=== PATIENT | female | born 1960 | race Two or more races ===

== ENCOUNTER 2021-09-18 10:30 | Inpatient (IN) | payer OTHER, MEDICAID ==
[~2021-09-18] VITALS: Ht 142.2 cm; Wt 54.4 kg
[2021-09-18] MEDS ORDERED: InsuLIN REG 1unit/0.01ml Soln (100units/ml) IV ONE (10:45)
[2021-09-18] MEDS ORDERED: ONDANSETRON HCL 4 MG/2 ML VIAL IV ONE (10:45)
[2021-09-18] MEDS ORDERED: MORPHINE SULFATE 4 MG/ML SYR/VIAL IV ONE (10:45)
[2021-09-18 10:59] LABS: Basophils # (auto) 0 10 ^3/uL (0-0.2); Basophils % (auto) 0.4 % (0.0-2.0); Eosinophils # (auto) 0.1 10 ^3/uL (0-0.8); Eosinophils % (auto) 0.8 % (0.0-7.0); Hematocrit 38.6 % (36.0-46.0); Hemoglobin 12.7 g/dL (12.2-16.2); Lymphocytes # (auto) 1.2 10 ^3/uL (0.4-5.4); Lymphocytes % (auto) 15.7 % (10.0-50.0); Mean Corpuscular Hgb Conc. 32.8 g/dL (32.0-36.0); Mean Corpuscular Volume 88.5 fL (80.0-100.0); Monocytes # (auto) 0.4 10 ^3/uL (0-1.3); Monocytes % (auto) 5.1 % (0.0-12.0); Neutrophils # (auto) 6.2 10 ^3/uL (1.6-8.6); Nucleated Red Blood Cells % 0.1 %; Red Blood Cells 4.37 10^6/uL (4.0-5.20); Red Cell Distribution Width 13.4 % (11.8-14.3)
[2021-09-18 11:12] LABS: INR 0.96 (0.9-1.15); Partial Thromboplastin Time 25.7 sec (23.6-33.0)
[2021-09-18 11:20] LABS: Albumin 3.9 g/dL (3.4-5.0); Calcium 9.7 mg/dL (8.5-10.1); Magnesium 2.1 mg/dL (1.6-2.6); Potassium 5.2 mmol/L (3.5-5.1)
[2021-09-18 11:29] LABS: Bilirubin, Total 1.2 mg/dL (0.2-1.0)
[2021-09-18 12:11] LABS: BUN/Creatinine Ratio 20.8
[2021-09-18 14:51] LABS: Urine Bacteria FEW /hpf (None Seen); Urine Blood Negative /uL (Negative); Urine Specific Gravity 1.025 (1.001-1.035); Urine WBC 2 /hpf (0 - 5)
[2021-09-18] MEDS ORDERED: HYDROcodone-ACET 5/325MG TAB PO PRN (15:00)
[2021-09-18] MEDS ORDERED: MORPHINE SULFATE INJ 2 MG/ml SYRG IV PRN (15:00)
[2021-09-18] MEDS ORDERED: NITROGLYCERIN 0.4 MG SL TAB SL PRN (15:00)
[2021-09-18] MEDS ORDERED: hydrALAZINE HCL 20 MG/ML VL IV PRN (15:00)
[2021-09-18] MEDS ORDERED: ONDANSETRON HCL 4 MG/2 ML VIAL IV PRN (15:00)
[2021-09-18] MEDS ORDERED: SODIUM CHLORIDE 0.9% 1,000 ML IV ONE ×2 (15:00)
[2021-09-18] MEDS ORDERED: DOCUSATE SOD 100 MG CAP PO PRN (15:00)
[2021-09-18] MEDS ORDERED: DEXTROSE (50%) 50ML SYRG IV PRN (15:00)
[2021-09-18] MEDS ORDERED: ACETAMINOPHEN 325 MG TAB PO PRN (15:00)
[2021-09-18 16:00] VITALS: BP 132/52
[2021-09-18] MEDS ORDERED: ACCU-CHEK COMFORT CURVE STRIP VI SCH (16:00)
[2021-09-18] MEDS ORDERED: InsuLIN REG 1unit/0.01ml Soln (100units/ml) SC SCH (16:00)
[2021-09-18 16:07] LABS: BUN/Creatinine Ratio 23.8; Calcium 8.9 mg/dL (8.5-10.1); Potassium 5.5 mmol/L (3.5-5.1)
[2021-09-18] MEDS ORDERED: SODIUM ZIRCONIUM CYCL 10 GM PAK PO ONE (16:30)
[2021-09-19] MEDS ORDERED: INSULIN LANTUS (GLARGINE) 1 /0.01ml (100units/ml) SC SCH (10:00)
== END 2021-09-18 17:41 | disposition left against medical advice (07) | DRG 313 ==
LOC: ER 10:30 → EDBD 10:30 → TELE 14:56
PROVIDERS: ADMIT Internal Medicine; ATTEND Internal Medicine
DX: R07.89 Other chest pain (principal); E11.10 Type 2 diabetes mellitus with ketoacidosis without coma; Z20.822 Contact with and (suspected) exposure to COVID-19; E78.5 Hyperlipidemia, unspecified; E87.5 Hyperkalemia; F41.9 Anxiety disorder, unspecified; Z96.41 Presence of insulin pump (external) (internal); Z53.29 Procedure and treatment not carried out because of patient's decision for other reasons; I10 Essential (primary) hypertension; I25.2 Old myocardial infarction; Z79.4 Long term (current) use of insulin; Z82.0 Family history of epilepsy and other diseases of the nervous system; Z83.3 Family history of diabetes mellitus; Z86.73 Personal history of transient ischemic attack (TIA), and cerebral infarction without residual deficits; Z87.442 Personal history of urinary calculi; Z95.1 Presence of aortocoronary bypass graft; Z90.49 Acquired absence of other specified parts of digestive tract; Z88.8 Allergy status to other drugs, medicaments and biological substances
CPT/HCPCS: 36415; 71045; 80048; 80053; 81001; 82962; 83735; 83880; 84484; 85025; 85610; 85730; 93005; 93306; 96374; 96375; 99291; G0378; J1815; J2405

== ENCOUNTER 2021-09-25 11:20 | Outpatient (CLI) | payer OTHER, MEDICAID ==
[~2021-09-25] VITALS: Ht 142.2 cm; Wt 54.4 kg
[2021-09-25] MEDS ORDERED: OMEP20TA PO (15:36)
[2021-09-25] MEDS ORDERED: HYDR-4798 PO (15:36)
[2021-09-25] MEDS ORDERED: ASPI-543 PO (15:36)
[2021-09-25] MEDS ORDERED: ROSU10TA16 PO (15:36)
[2021-09-25] MEDS ORDERED: ISOS1TAB28 PO (15:36)
[2021-09-25] MEDS ORDERED: INSU100I60 SC (15:36)
[2021-09-25] MEDS ORDERED: TELM1TAB35 PO (15:36)
[2021-09-25] MEDS ORDERED: METF-929 PO (15:36)
[2021-09-25] MEDS ORDERED: METH500T22 PO (15:36)
[2021-09-25] MEDS ORDERED: GABA100C9 PO (15:36)
[2021-09-25] MEDS ORDERED: METO-289 PO (15:41)
[2021-09-25] MEDS ORDERED: PAR20T PO (15:41)
== END 2021-09-25 11:22 | disposition home or self-care (01) ==
LOC: LAB 11:20 → EDSTATUS 09-29 15:52
PROVIDERS: ATTEND Internal Medicine Cardiovascular Disease
DX: R94.39 Abnormal result of other cardiovascular function study (principal); Z53.8 Procedure and treatment not carried out for other reasons; Z20.822 Contact with and (suspected) exposure to COVID-19

== ENCOUNTER 2021-11-06 06:22 | Day surgery (SDC) | payer OTHER, MEDICAID ==
[2021-11-06] VITALS (7 sets, daily range): BP systolic 118–134; BP diastolic 52–60
[~2021-11-06] VITALS: Ht 142.2 cm; Wt 54.4 kg
[~2021-11-06 06:22] MED LIST: ASPI-543 PO; GABA100C9 PO; HYDR-4798 PO; INSU100I60 SC; ISOS1TAB28 PO; METF-929 PO; METH500T22 PO; METO-289 PO; OMEP20TA PO; PAR20T PO; ROSU10TA16 PO; TELM1TAB35 PO
[2021-11-06] MEDS ORDERED: IODIXANOL 320MG/ML 100ML BTL IV ONE ×2 (07:37→08:39)
[2021-11-06] MEDS ORDERED: LIDOCAINE 2%HCL (LOCAL ANESTH.) INJ 20ML MDV ONE (07:38)
[2021-11-06] MEDS ORDERED: MIDAZOLAM HCL 2MG/2ML 2ml VIAL (1mg/ml) ONE (07:59)
[2021-11-06] MEDS ORDERED: fentaNYL CITRATE 100 MCG/2 ML VL ONE (07:59)
== END 2021-11-06 11:22 | disposition home or self-care (01) ==
LOC: CATH 06:22
PROVIDERS: ATTEND Internal Medicine Cardiovascular Disease
DX: R07.9 Chest pain, unspecified (principal); I25.10 Atherosclerotic heart disease of native coronary artery without angina pectoris; Z95.1 Presence of aortocoronary bypass graft; Z20.822 Contact with and (suspected) exposure to COVID-19
CPT/HCPCS: 93459; C1760; C1894; J1644; J2250; J3010; Q9967; U0003; 99152; 99153

== ENCOUNTER 2022-01-02 20:23 | Emergency (ER) | payer OTHER, MEDICAID ==
[~2022-01-02] VITALS: Ht 144.8 cm; Wt 54.6 kg
[2022-01-02 22:05] LABS: Basophils # (auto) 0 10 ^3/uL (0-0.2); Basophils % (auto) 0.2 % (0.0-2.0); Eosinophils # (auto) 0.1 10 ^3/uL (0-0.8); Hematocrit 35.8 % (36.0-46.0); Hemoglobin 11.9 g/dL (12.2-16.2); Lymphocytes # (auto) 1.5 10 ^3/uL (0.4-5.4); Lymphocytes % (auto) 15.8 % (10.0-50.0); Mean Corpuscular Hemoglobin 29.4 pg (28.0-32.0); Mean Corpuscular Hgb Conc. 33.3 g/dL (32.0-36.0); Mean Corpuscular Volume 88.2 fL (80.0-100.0); Monocytes # (auto) 0.5 10 ^3/uL (0-1.3); Monocytes % (auto) 5.6 % (0.0-12.0); Neutrophils # (auto) 7.3 10 ^3/uL (1.6-8.6); Neutrophils % (auto) 77.4 % (37.0-80.0); Red Blood Cells 4.05 10^6/uL (4.0-5.20); Red Cell Distribution Width 13.4 % (11.8-14.3); White Blood Cell 9.5 10^3/uL (4.4-10.8)
[2022-01-02 22:25] LABS: Albumin 3.5 g/dL (3.4-5.0); Calcium 9.4 mg/dL (8.5-10.1)
[2022-01-02 22:48] LABS: Potassium 4.6 mmol/L (3.5-5.1)
[2022-01-02 22:53] LABS: Bilirubin, Total 0.3 mg/dL (0.2-1.0); Total Protein 6.6 g/dL (6.4-8.2)
[2022-01-02 22:54] LABS: BUN/Creatinine Ratio 26.9
[2022-01-02 23:15] LABS: Urine Bacteria NONE SEEN /hpf (None Seen); Urine Blood 3+ /uL (Negative); Urine Mucus FEW (None Seen); Urine Specific Gravity 1.022 (1.001-1.035); Urine WBC 55 /hpf (0 - 5)
[2022-01-02] MEDS: ACETAMINOPHEN 500 MG TAB PO ONE ×2 (23:26→23:27)
[2022-01-02] MEDS ORDERED: MORPHINE SULFATE INJ 2 MG/ml SYRG IV ONE (23:45)
[2022-01-02] MEDS ORDERED: SODIUM CHLORIDE 0.9% 1,000 ML IV ONE (23:45)
[2022-01-02] MEDS ORDERED: ONDANSETRON HCL 4 MG/2 ML VIAL IV ONE (23:45)
[2022-01-03 05:00] VITALS: BP 155/57
[2022-01-03] MEDS ORDERED: ONDA-144 PO (05:11)
[2022-01-03] MEDS ORDERED: TAM04C PO (05:11)
[2022-01-03] MEDS ORDERED: CIPR-173 PO (05:14)
[2022-01-03] MEDS ORDERED: CIPROFLOXACIN HCL 500 MG TAB PO ONE (05:15)
== END 2022-01-03 05:28 | disposition home or self-care (01) ==
LOC: ER 20:24
DX: N20.0 Calculus of kidney (principal); I10 Essential (primary) hypertension; E11.9 Type 2 diabetes mellitus without complications; E78.5 Hyperlipidemia, unspecified; I25.2 Old myocardial infarction; Z86.73 Personal history of transient ischemic attack (TIA), and cerebral infarction without residual deficits; Z95.1 Presence of aortocoronary bypass graft; Z90.49 Acquired absence of other specified parts of digestive tract; Z79.4 Long term (current) use of insulin; Z79.899 Other long term (current) drug therapy; Z88.8 Allergy status to other drugs, medicaments and biological substances
CPT/HCPCS: 36415; 74176; 80053; 81001; 83690; 84484; 85025; 96361; 96374; 96375; 99284; J2270; J2405; J7030

== ENCOUNTER 2022-07-01 17:34 | Emergency (ER) | payer OTHER, MEDICAID ==
[~2022-07-01] VITALS: Ht 142.2 cm; Wt 56.4 kg
[~2022-07-01 17:34] MED LIST changes: +CIPR-173 PO; +ONDA-144 PO; +TAM04C PO
[2022-07-01 18:44] VITALS: BP 133/52
== END 2022-07-01 19:02 | disposition home or self-care (01) ==
LOC: ER 17:34
DX: R51.9 Headache, unspecified (principal); F41.9 Anxiety disorder, unspecified; E11.9 Type 2 diabetes mellitus without complications; E78.5 Hyperlipidemia, unspecified; I10 Essential (primary) hypertension; I25.2 Old myocardial infarction; Z87.442 Personal history of urinary calculi; Z86.73 Personal history of transient ischemic attack (TIA), and cerebral infarction without residual deficits; Z95.1 Presence of aortocoronary bypass graft
CPT/HCPCS: 70450

== ENCOUNTER → 2023-03-30 | Outpatient (CLI) | payer MEDICAID ==
[~2023-03-30] MED LIST changes: +GABA-1308 PO; -GABA100C9 PO; +METH-1181 PO; -METH500T22 PO; -TAM04C PO; +TAMS-35 PO
[2023-03-30 08:10] LABS: Basophils # (auto) 0 10 ^3/uL (0-0.2); Basophils % (auto) 0.4 % (0.0-2.0); Eosinophils # (auto) 0.1 10 ^3/uL (0-0.8); Eosinophils % (auto) 2.1 % (0.0-7.0); Hematocrit 37.1 % (36.0-46.0); Hemoglobin 12.6 g/dL (12.2-16.2); Lymphocytes # (auto) 2.7 10 ^3/uL (0.4-5.4); Lymphocytes % (auto) 39.4 % (10.0-50.0); Mean Corpuscular Volume 88.1 fL (80.0-100.0); Monocytes # (auto) 0.5 10 ^3/uL (0-1.3); Monocytes % (auto) 7.8 % (0.0-12.0); Neutrophils # (auto) 3.4 10 ^3/uL (1.6-8.6); Neutrophils % (auto) 50.3 % (37.0-80.0); Red Blood Cells 4.22 10^6/uL (4.0-5.20); Red Cell Distribution Width 14.2 % (11.8-14.3); White Blood Cell 6.8 10^3/uL (4.4-10.8)
[2023-03-30 08:34] LABS: Urine Bacteria FEW /hpf (None Seen); Urine Blood Negative /uL (Negative); Urine Clarity Clear (Clear); Urine Color Straw (Yellow); Urine Protein, UAD Negative (Negative); Urine Urobilinogen Normal (Negative); Urine WBC 2 /hpf (0 - 5); Urine pH 5.5 (5.0-8.0)
[2023-03-30 08:41] LABS: Alkaline Phosphatase 116 U/L (46-116); Triglycerides 69 mg/dL (< 150)
[2023-03-30 08:42] LABS: Alanine Aminotransferase 32 U/L (7-40); Albumin 4.4 g/dL (3.2-4.8); Anion Gap 5 (5-15); Aspartate Aminotransferase 23 U/L (13-40); BUN/Creatinine Ratio 14.7 (10.0-20.0); Bilirubin, Total 0.6 mg/dL (0.2-1.0); Blood Urea Nitrogen 10 mg/dL (9-23); Calcium 9.8 mg/dL (8.5-10.1); Carbon Dioxide 29 mmol/L (20-30); Chloride 109 mmol/L (98-107); Cholesterol 121 mg/dL (< 200); Glucose 164 mg/dL (74-106); HDL Cholesterol 57 mg/dL (40-59); LDL Cholesterol 49 mg/dL (< 100); Potassium 4.7 mmol/L (3.5-5.1); Sodium 143 mmol/L (136-145); Total Protein 6.8 g/dL (5.7-8.2)
[2023-03-30 08:58] LABS: Folate (Folic Acid) > 24.00 ng/mL (>5.38)
[2023-03-30 09:33] LABS: Magnesium 1.8 mg/dL (1.6-2.6); Uric Acid 3.8 mg/dL (3.1-7.8)
== END | disposition home or self-care (01) ==
LOC: LAB 07:46
PROVIDERS: ATTEND Internal Medicine
DX: E61.2 Magnesium deficiency (principal); E85.9 Amyloidosis, unspecified; R82.90 Unspecified abnormal findings in urine; D51.9 Vitamin B12 deficiency anemia, unspecified; R79.89 Other specified abnormal findings of blood chemistry; E78.9 Disorder of lipoprotein metabolism, unspecified; R68.89 Other general symptoms and signs; R73.09 Other abnormal glucose
CPT/HCPCS: 36415; 80053; 80061; 81001; 82306; 82607; 82746; 83036; 83735; 84443; 84550; 85025; 87086

== ENCOUNTER → 2023-06-01 | Outpatient (CLI) | payer MEDICAID ==
[2023-06-01 11:33] LABS: Basophils # (auto) 0 10 ^3/uL (0-0.2); Basophils % (auto) 0.4 % (0.0-2.0); Eosinophils # (auto) 0.1 10 ^3/uL (0-0.8); Eosinophils % (auto) 1.9 % (0.0-7.0); Hemoglobin 12.4 g/dL (12.2-16.2); Lymphocytes # (auto) 2.4 10 ^3/uL (0.4-5.4); Lymphocytes % (auto) 35.2 % (10.0-50.0); Mean Corpuscular Hemoglobin 29.5 pg (28.0-32.0); Mean Corpuscular Hgb Conc. 33.6 g/dL (32.0-36.0); Mean Corpuscular Volume 87.8 fL (80.0-100.0); Monocytes # (auto) 0.5 10 ^3/uL (0-1.3); Monocytes % (auto) 7.4 % (0.0-12.0); Neutrophils # (auto) 3.8 10 ^3/uL (1.6-8.6); Neutrophils % (auto) 55.1 % (37.0-80.0); Red Blood Cells 4.21 10^6/uL (4.0-5.20); Red Cell Distribution Width 13.8 % (11.8-14.3); White Blood Cell 6.9 10^3/uL (4.4-10.8)
[2023-06-01 12:14] LABS: Alanine Aminotransferase 33 U/L (7-40); Albumin 4.6 g/dL (3.2-4.8); Alkaline Phosphatase 128 U/L (46-116); Anion Gap 8 (5-15); Aspartate Aminotransferase 32 U/L (13-40); BUN/Creatinine Ratio 21.9 (10.0-20.0); Bilirubin, Total 0.4 mg/dL (0.2-1.0); Blood Urea Nitrogen 14 mg/dL (9-23); CRP High Sensitivity 0.08 mg/dL (<1.0); Calcium 10.1 mg/dL (8.5-10.1); Carbon Dioxide 27 mmol/L (20-30); Chloride 106 mmol/L (98-107); Glucose 174 mg/dL (74-106); Potassium 4.5 mmol/L (3.5-5.1); Sodium 141 mmol/L (136-145); Total Protein 7.4 g/dL (5.7-8.2)
[2023-06-01 12:21] LABS: Erythrocyte Sedimentation Rate 13 mm/hr (0-20)
[2023-06-02 07:06] LABS: Rheumatoid Arthritis Factor <10.0 IU/mL (<14.0)
[2023-06-02 08:39] LABS: Hepatitis B Surface Antibody Positive (Negative)
[2023-06-02 08:51] LABS: Hepatitis B Surface Antigen Negative (Negative)
[2023-06-02 09:13] LABS: Hepatitis B Core IgM Negative; Hepatitis C Antibody Negative (Negative)
[2023-06-02 14:06] LABS: Hepatitis B Core Total Antibod Negative (Negative)
[2023-06-03 18:06] LABS: CCP IgG/IgA Antibody 7 units (0-19)
[2023-06-04 04:06] LABS: QuantiFERON-TB Gold Plus Negative (Negative)
== END | disposition home or self-care (01) ==
LOC: LAB 10:55
PROVIDERS: ATTEND Internal Medicine Rheumatology
DX: M06.9 Rheumatoid arthritis, unspecified (principal)
CPT/HCPCS: 36415; 80053; 85025; 85652; 86141; 86200; 86431; 86705; 86706; 86803; 86812; 87340

== ENCOUNTER → 2023-08-29 | Outpatient (CLI) | payer MEDICAID ==
[2023-08-29 07:36] LABS: Basophils # (auto) 0.1 10 ^3/uL (0-0.2); Basophils % (auto) 1.1 % (0.0-2.0); Eosinophils # (auto) 0.2 10 ^3/uL (0-0.8); Eosinophils % (auto) 2.6 % (0.0-7.0); Hematocrit 37.2 % (36.0-46.0); Hemoglobin 12.3 g/dL (12.2-16.2); Lymphocytes # (auto) 2.6 10 ^3/uL (0.4-5.4); Lymphocytes % (auto) 35.8 % (10.0-50.0); Mean Corpuscular Hemoglobin 29.2 pg (28.0-32.0); Mean Corpuscular Volume 88.5 fL (80.0-100.0); Monocytes # (auto) 0.5 10 ^3/uL (0-1.3); Monocytes % (auto) 7.3 % (0.0-12.0); Neutrophils # (auto) 3.9 10 ^3/uL (1.6-8.6); Neutrophils % (auto) 53.2 % (37.0-80.0); Nucleated Red Blood Cells % 0.1 %; Red Cell Distribution Width 14.1 % (11.8-14.3); White Blood Cell 7.4 10^3/uL (4.4-10.8)
[2023-08-29 07:54] LABS: Urine Bacteria FEW /hpf (None Seen); Urine Blood Negative /uL (Negative); Urine Clarity Clear (Clear); Urine Color Light-Yellow (Yellow); Urine Protein, UAD Negative (Negative); Urine Specific Gravity 1.012 (1.001-1.035); Urine Urobilinogen Normal (Negative); Urine WBC 3 /hpf (0 - 5); Urine pH 5.5 (5.0-9.0)
[2023-08-29 08:00] LABS: Alanine Aminotransferase 28 U/L (7-40); Alkaline Phosphatase 122 U/L (46-116); Calcium 10.3 mg/dL (8.5-10.1); Chloride 108 mmol/L (98-107); Triglycerides 65 mg/dL (< 150)
[2023-08-29 08:01] LABS: Anion Gap 4 (5-15); BUN/Creatinine Ratio 15.6 (10.0-20.0); Blood Urea Nitrogen 10 mg/dL (9-23); Carbon Dioxide 31 mmol/L (20-30); Glucose 81 mg/dL (74-106); LDL Cholesterol 38 mg/dL (< 100); Magnesium 1.9 mg/dL (1.6-2.6); Potassium 4.5 mmol/L (3.5-5.1); Sodium 143 mmol/L (136-145); Total Protein 6.9 g/dL (5.7-8.2)
[2023-08-29 08:02] LABS: Albumin 4.5 g/dL (3.2-4.8); Aspartate Aminotransferase 14 U/L (13-40); Bilirubin, Direct 0.2 mg/dL (<0.3); Bilirubin, Total 0.3 mg/dL (0.2-1.0); Cholesterol 108 mg/dL (< 200); HDL Cholesterol 55 mg/dL (40-59)
[2023-08-29 08:22] LABS: Protein, Urine < 6.0 mg/dL (0.0-11.9)
[2023-08-29 08:23] LABS: Urine Protein/Creatinine Ratio 0.13
[2023-08-29 08:27] LABS: Micro Albumin < 3.0 mg/L (<30.0)
[2023-08-29 08:44] LABS: Uric Acid 4.2 mg/dL (3.1-7.8)
[2023-08-29 11:29] LABS: Folate (Folic Acid) 26.77 ng/mL (>5.38)
[2023-08-30 08:06] LABS: Thyroid Peroxidase (TPO) Ab 12 IU/mL (0-34)
[2023-08-30 12:07] LABS: Complement C3 128 mg/dL (82-167); Rheumatoid Arthritis Factor <10.0 IU/mL (<14.0)
[2023-08-30 14:06] LABS: Anti-Nuclear Antibody Direct Positive (Negative); Anti-dsDNA Antibody 126 IU/mL (0-9); Antiscleroderma-70 Antibody <0.2 AI (0.0-0.9); RNP Antibody 0.2 AI (0.0-0.9); Sjogren's Anti-SS-A Antibody <0.2 AI (0.0-0.9); Sjogren's Anti-SS-B Antibody <0.2 AI (0.0-0.9); Smith Antibody <0.2 AI (0.0-0.9)
[2023-08-31 11:09] LABS: Antiparietal Cell Antibody 29.9 Units (0.0-20.0)
[2023-08-31 12:07] LABS: Actin (Smooth Muscle) Antibody 8 Units (0-19); Anti-Striated Muscle Antibody Negative (Neg:<1:100); Mitochondrial (M2) Antibody <20.0 Units (0.0-20.0)
== END | disposition home or self-care (01) ==
LOC: LAB 06:29
PROVIDERS: ATTEND Internal Medicine
DX: I10 Essential (primary) hypertension (principal); E78.5 Hyperlipidemia, unspecified; E03.9 Hypothyroidism, unspecified; R68.89 Other general symptoms and signs; D64.9 Anemia, unspecified; E78.9 Disorder of lipoprotein metabolism, unspecified; E61.2 Magnesium deficiency; E79.0 Hyperuricemia without signs of inflammatory arthritis and tophaceous disease; E85.9 Amyloidosis, unspecified; R82.90 Unspecified abnormal findings in urine; D51.9 Vitamin B12 deficiency anemia, unspecified; E10.65 Type 1 diabetes mellitus with hyperglycemia; Z79.899 Other long term (current) drug therapy; E11.9 Type 2 diabetes mellitus without complications
CPT/HCPCS: 36415; 80053; 80061; 81001; 82043; 82248; 82306; 82570; 82607; 82746; 83036; 83735; 84156; 84443; 84550; 85025; 86160; 86225; 86235; 86376; 86431; 87086

== ENCOUNTER 2024-10-01 05:29 | Inpatient (IN) | payer OTHER, MEDICAID ==
[~2024-10-01] VITALS: Ht 142.2 cm; Wt 60.0 kg
--- NOTE | 2024-10-01 06:52 | ED.PDOC ---
GI ASSESSMENT HPI Comments 63 y/o F, with PMHx of CVA, DC, TIA, DM, HTN, HLD, and kidney stones presents to the ED for CC of abdominal pain. Patient states, she has been experiencing LLQ abdominal pain with associated nausea and vomiting onset, 0200 this morning (10/01/24). Patient reports, pain to worsen with movement. Patient comments on, new symptoms of hematuria. Patient denies fever, chills, urinary frequency, hematochezia, or diarrhea. No other symptoms or modifying factors present at this time. Chief Complaint: Abdominal Pain Time Seen by MD: 06:40 Primary Care Provider: LYNN Reviewed Notes: Nurses Notes, Medications, Allergies Allergies: Coded Allergies: Lisinopril (Verified Allergy, Unknown, 11/04/21) Pregabalin (Verified Allergy, Unknown, 07/01/22) Tramadol (Verified Allergy, Unknown, 11/04/21) Home Meds Active Scripts Ciprofloxacin Hcl (Cipro) 500 Mg Tab, 500 MG PO BID for 7 Days, #14 Prov:SHYANN MCNEAL DO 01/03/22 Ondansetron (Zofran) 4 Mg Tab, 1 TAB PO Q6HR PRN for 7 Days, #28 TAB Prov:SHYANN MCNEAL DO 01/03/22 Tamsulosin Hcl (Flomax) 0.4 Mg Cap, 0.4 MG PO BID for 5 Days, #10 CAP Prov:SHYANN MCNEAL DO 01/03/22 Reported Medications Telmisartan (Telmisartan) 40 Mg Tab, 40 MG PO DAILY for HTN, TAB 11/04/21 Paroxetine (PAXIL TABLET) 20 Mg Tb, 0.5 TAB PO DAILY for DEPRESSION, #30 TAB 5 Refills 11/04/21 Insulin Aspart (Novolog Relion) 100 Unit/Ml Inj, 100 UNIT SC DAILY for diabetes, INJ 11/04/21 Metoprolol Succinate (Metoprolol Succinate Er) 50 Mg Tab, 50 MG PO DAILY for 30 Days, MG 09/25/21 Hydrocodone-Acetaminophen (Hydrocodone Bitartrate/AC 10-325 mg) 1 Tab Tab, 1 TAB PO BIDP PRN for PAIN, TAB 09/25/21 Omeprazole (Gnp Omeprazole) 20 Mg Tab, 1 TAB PO DAILY, #90 TAB 1 Refill 09/25/21 Rosuvastatin Calcium (Crestor) 10 Mg Tab, 1 TAB PO 4X WEEK for HYPERLIPIDEMIA, #30 TAB 5 Refills 09/25/21 Metformin HCl (Metformin Hydrochloride) 1,000 Mg Tab, 1000 MG PO BID for DIABETES, TAB 09/25/21 Isosorbide Mononitrate (Isosorbide Mononitrate Er) 30 Mg Tab, 30 MG PO DAILY for CHEST PAIN, MG 09/25/21 Aspirin (Aspir-Low) 81 Mg Tab, 81 MG PO DAILY for CHEST PAIN, MG 09/25/21 Methocarbamol (Methocarbamol) 500 Mg Tab, 500 MG PO TID for MUSCLE SPASM, TAB 09/25/21 Gabapentin (Gabapentin) 100 Mg Cap, 100 MG PO TID for NEUROPATHY 09/25/21 Information Source: Patient Mode of Arrival: Ambulatory Timing: Hours Duration: Since onset Prehospital treatment: None Quality: None Vomitus: Watery Stool: Normal Severity: Moderate Recent: None Recent Hx of: None Pain Location: LLQ Modifying Factors: Nothing Associated sign and symptoms: Nausea, Vomiting, Abdominal Pain Past Medical History PAST MEDICAL HISTORY: Anxiety, CVA, DM, High Lipids, HTN, Kidney Stones, DC, TIA Surgical History: CABG, Cholecystectomy [employer] History: No Pertinent [employer] History Family History Family History: Reviewed,noncontributory to illness, Family hx of heart sylvia, Family hx of Kidney sylvia Family History (Other): Alzheimer's disease Social History Smoker: Non-Smoker Alcohol: Denies ETOH Use Drugs: Denies Drug Use Lives In: Home Constitutional: denies: chills, diaphoresis, fatigue, fever, malaise, sweats, weakness, others EENTM: denies: blurred vision, double vision, ear bleeding, ear discharge, ear drainage, ear pain, ear ringing, eye pain, eye redness, hearing loss, mouth pain, mouth swelling, nasal discharge, nose bleeding, nose congestion, nose pain, photophobia, tearing, throat pain, throat swelling, voice changes, others Respiratory: denies: cough, hemoptysis, orthopnea, SOB at rest, shortness of breath, SOB with excertion, stridor, wheezing, others Cardiovascular: denies: chest pain, dizzy spells, diaphoresis, Dyspnea on exertion, edema, irregular heart beat, left arm pain, lightheadedness, palpitations, PND, syncope, others Gastrointestinal: reports: abdominal pain, nausea, vomiting; denies: abdomen distended, blood streaked bowels, constipated, diarrhea, dysphagia, difficulty swallowing, hematemesis, melena, poor appetite, poor fluid intake, rectal bleeding, rectal pain, others Genitourinary: denies: abnormal vagina bleeding, burning, dyspareunia, dysuria, flank pain, frequency, hematuria, incontinence, pain, , vagina disc harge, urgency, others Neurological: denies: dizziness, fainting, headache, left sided numbness, left sided weakness, numbness, paresthesia, pre-existing deficit, right sided numbness, right sided weakness, seizure, speech problems, tingling, tremors, weakness, others Musculoskeletal: denies: back pain, gout, joint pain, joint swelling, muscle pain, muscle stiffness, neck pain, others Integumetry: denies: bruises, change in color, change in hair/nails, dryness, laceration, lesions, lumps, rash, wounds, others Allergic/Immunocompromised: denies: Difficulty Healing, Frequent Infections, Hives, Itching, others Hematologic/Lymphatic: denies: anemia, blood clots, easy bleeding, easy bruising, swollen glands, others Endocrine: denies: excessive hunger, excessive sweating, excessive thirst, excessive urination, flushing, intolerance to cold, intolerance to heat, unexplained weight gain, unexplained weight loss, others Psychiatric: denies: anxiety, bipolar disorder, depression, hopeless, panic disorder, schizophrenia, sleepless, suicidal, others All Other Systems: Reviewed and Negative Physical Exam General Appearance: Moderate Distress HEENT: Normal ENT Inspection, Pharynx Normal, TMs Normal Neck: Full Range of Motion, Non-Tender, Normal, Normal Inspection Respiratory: Chest Non-Tender, Lungs Clear, No Accessory Muscle Use, No Respiratory Distress, Normal Breath Sounds Cardiovascular: No Edema, No JVD, No Murmur, No Gallop, Normal Peripheral Pulses, Regular Rate/Rhythm Breast Exam: Deferred Gastrointestinal: No Organomegaly, Non Tender, No Pulsatile Mass, Normal Bowel Sounds, Soft Genitalia: Deferred Pelvic: Deferred Rectal: Deferred Extremities: No calf tenderness, Normal capillary refill, Normal inspection, Normal range of motion, Non-tender, No pedal edema Musculoskeletal : Apperance: Normal Neurologic: Alert, automotive service writer II-XII nml as Tested, No Motor Deficits, Normal Affect, Normal Mood, No Sensory Deficits Cerebellar Function: Normal Reflexes: Normal Skin: Dry, Normal Color, Warm Peripheral Pulses: 3+ Radial (R), 3+ Radial (L) Lymphatic: No Adenopathy Was a procedure done? Was a procedure done?: No GI differential Dx Differential Diagnosis: Constipation, Diverticular disease, Esophagitis, Gastritis/PUD, Gastroenteritis, Inflammatory BD, Urolithiasis X-Ray, Labs, Meds, VS Vital Signs Date Time Temp Pulse Resp B/P (MAP) Pulse Ox O2 Delivery O2 Flow Rate FiO2 10/01/24 09:31 141/63 10/01/24 07:52 98.2 84 16 141/63 (89) 97 98.2 10/01/24 06:21 98.2 76 20 133/64 (87) 98 98.2 Lab Test 10/01/24 09:07 10/01/24 06:46 10/01/24 06:40 Range/Units Lactic Acid Level 1.3 0.4-2.0 mmol/L White Blood Count 14.7 H 4.4-10.8 10^3/uL Red Blood Count 4.40 4.0-5.20 10^6/uL Hemoglobin 13.2 12.2-16.2 g/dL Hematocrit 39.2 36.0-46.0 % Mean Corpuscular Volume 89.1 80.0-100.0 fL Mean Corpuscular Hemoglobin 30.1 28.0-32.0 pg Mean Corpuscular Hemoglobin Concent 33.8 32.0-36.0 g/dL Red Cell Distribution Width 13.7 11.8-14.3 % Platelet Count 332 140-450 10^3/uL Mean Platelet Volume 8.7 6.9-10.8 fL Neutrophils (%) (Auto) 83.1 H 37.0-80.0 % Lymphocytes (%) (Auto) 10.8 10.0-50.0 % Monocytes (%) (Auto) 5.5 0.0-12.0 % Eosinophils (%) (Auto) 0.3 0.0-7.0 % Basophils (%) (Auto) 0.3 0.0-2.0 % Neutrophils # (Auto) 12.2 H 1.6-8.6 10 ^3/uL Lymphocytes # (Auto) 1.6 0.4-5.4 10 ^3/uL Monocytes # (Auto) 0.8 0-1.3 10 ^3/uL Eosinophils # (Auto) 0 0-0.8 10 ^3/uL Basophils # (Auto) 0 0-0.2 10 ^3/uL Nucleated Red Blood Cells 0.0 % Sodium Level 139 136-145 mmol/L Potassium Level 5.1 3.5-5.1 mmol/L Chloride Level 103 98-107 mmol/L Carbon Dioxide Level 27 20-31 mmol/L Anion Gap 9 5-15 Blood Urea Nitrogen 20 9-23 mg/dL Creatinine 1.15 H 0.550-1.02 mg/dL Glomerular Filtration Rate Calc 54 >90 mL/min BUN/Creatinine Ratio 17.4 10.0-20.0 Serum Glucose 330 H 74-106 mg/dL Calcium Level 11.3 H 8.7-10.4 mg/dL Urine Color Light-yellow Yellow Urine Clarity Turbid H Clear Urine pH 5.5 5.0-9.0 Urine Specific [place] 1.026 1.001-1.035 Urine Protein 1+ H Negative Urine Ketones 1+ H Negative Urine Blood 1+ H Negative /uL Urine Nitrite Negative Negative Urine Bilirubin Negative Negative Urine Urobilinogen Normal Negative mg/dL Urine Leukocyte Esterase Negative Negative /uL Urine RBC 38 0 - 4 /hpf Urine Microscopic WBC 10 H 0-5 /HPF Urine Squamous Epithelial Cells Few <5 /hpf Urine Bacteria Few H None Seen /hpf Urine Hyaline Casts Few 0 - 2 /lpf Urine Mucus Few None Seen Urine Glucose 4+ H Normal mg/dL Current Medications Medications (Trade) Dose Ordered Sig/Mckayla Route Start Time Stop Time Status Last Admin Ketorolac Tromethamine (Toradol Injection) 30 mg ONCE ONCE IV 10/01/24 06:45 10/01/24 06:46 DC 10/01/24 08:21 Ondansetron HCl (Zofran) 4 mg ONCE ONCE IV 10/01/24 06:45 10/01/24 06:46 DC 10/01/24 08:20 Sodium Chloride 1,000 ml @ 1,000 mls/hr Q1H ONCE IV 10/01/24 06:45 10/01/24 07:44 DC 10/01/24 08:20 Piperacillin Sod/ Tazobactam Sod 100 ml @ 100 mls/hr ONCE ONCE IV 10/01/24 08:45 10/01/24 09:44 DC 10/01/24 09:29 Metronidazole 100 ml @ 100 mls/hr ONCE ONCE IV 10/01/24 08:45 10/01/24 09:44 DC 10/01/24 09:29 Furosemide (Lasix Injection) 20 mg ONCE ONCE IV 10/01/24 08:45 10/01/24 08:48 DC 10/01/24 09:31 [place] [id number] Ph: [phone] DIAGNOSTIC IMAGING Diagnostic Imaging Report : [id number] Signed PATIENT: COLLEEN BRITT ACCT: [id number] UNIT: [id number] : 1960 LOC: ER ROOM / BED: / AGE / SEX: 63 / F ADM STATUS: REG ER SERVICE [id number] ORDERING PHYSICIAN: JEWEL MONTEJO MD PROCEDURE(s): ABPL - CT AB PEL WO CON-NO ORAL OR IV REASON: stone ORDER NUMBER(s): [id number], ACCESSION NUMBER(s): [id number] CLINICAL INFORMATION: Renal stone. TECHNIQUE: Axial CT images of the abdomen and pelvis were obtained without IV contrast. Coronal and sagittal reformatted images were obtained, reviewed, and stored. Evaluation of the parenchymal organs is limited without IV contrast. Evaluation of the bowel and mesentery is limited without oral contrast. All CT scans at this medical facility are performed using dose modulation techniques as appropriate to a performed exam including the following: Automated exposure control was utilized; adjustment of the MA and/or KV according to patient size; and use of iterative reconstruction technique. CTDIvol = 8.57 mGy DLP = 451.99 mGy-cm COMPARISON: CT ABD PELVIS WO CONTRAST on DOS: 01/03/22, [facility] on DOS: 09/18/21 FINDINGS: Lung bases: Lung bases are clear. Liver: Grossly unremarkable in its noncontrast enhanced appearance. No abnormal density or focal lesion identified. Biliary: Cholecystectomy. Spleen: Unremarkable. Pancreas: Grossly unremarkable in its noncontrast enhanced appearance. Adrenal glands: Moderate atrophy. Kidneys: Moderate left hydronephrosis and hydroureter with obstructing 2.5 mm calculus in the distal left ureter near the ureterovesical junction. There is moderate left perinephric and periureteral stranding. Multiple small nonobstructing left renal calculi are seen, with the largest measuring up to 4 mm. Additional arterial calcifications are seen at the renal arianna bilaterally. Small nonobstructing calculus of the inferior pole of the right kidney measures up to 3.5 mm. Aorta/Vascular: Dense arterial calcification. No abdominal aortic aneurysm. Retroperitoneum: No mass or lymphadenopathy. Bowel/mesentery: Small hiatal hernia. No small bowel obstruction. No free air or free fluid. Appendix is visualized and appears unremarkable. Moderate stool in the colon. Pelvic organs: Grossly unremarkable. Bladder: Unremarkable. No mass. Abdominal wall: No mass or hernia. Bones: No acute fracture or suspicious intraosseous lesion. IMPRESSION: 1. Moderate left hydronephrosis and hydroureter with obstructing 2.5 mm calculus in the distal left ureter near the ureterovesical junction. Moderate left perinephric and periureteral stranding also noted. 2. Additional small nonobstructing bilateral renal calculi. 3. Additional nonacute findings as detailed above. ATED BY: CHRISTOPHER RODRIGEZ DO DICTATED DATE/TIME: 10/01/24832 SIGNED BY: CHRISTOPHER RODRIGEZ DO SIGNED DATE/TIME: 10/01/24832 CC: Patient alert. Complaining of flank pain. Vitals stable. Answering questions. Ambulating. Establish intravenous access. Was given fluids. Was given pain medication. Was given Zofran. She is comfortable. CT scan of the abdomen does show kidney stone. Urinalysis shows blood along with white cells. Possible sepsis. Explained to the patient. Continue monitoring. Time of 1ST Reevaluation: 07:10 Reevaluation 1ST: Unchanged Patient Education/Counseling: Diagnosis, Treatment Family Education/Counseling: No Family Present SEPSIS Sepsis Screen Date sepsis recognized/suspect: Oct 01, 2024 Time Sepsis recognized/suspect: 620 Recent Procedure: No On Antibiotic Therapy: No Respiratory Rate >20: No Heart Rate >90: No Temp<36 C (96.8 F) or >38.3 C: No SBP <90 or MAP <65 mmHG: No New Acute Mental Status Change: No Is the patient on CPAP, BIPAP,: No Physician Orders Ct Ab Pel Wo Con-No Oral Or Iv (10/01/24 06:40) Blood Culture (10/01/24 08:41) Sodium Chloride 0.9% (10/01/24 08:45) Vital Signs Date Time Temp Pulse Resp B/P (MAP) Pulse Ox O2 Delivery O2 Flow Rate FiO2 10/01/24 09:31 141/63 10/01/24 07:52 98.2 84 16 141/63 (89) 97 98.2 10/01/24 06:21 98.2 76 20 133/64 (87) 98 98.2 Laboratory Tests Test 10/01/24 06:46 10/01/24 09:07 White Blood Count 14.7 10^3/uL (4.4-10.8) H Lactic Acid Level 1.3 mmol/L (0.4-2.0) Medications Medications Dose Ordered Sig/Mckayla Route Start Time Stop Time Status Last Admin Dose Admin Furosemide 20 mg ONCE ONCE IV 10/01/24 08:45 10/01/24 08:48 DC 10/01/24 09:31 Ketorolac Tromethamine 30 mg ONCE ONCE IV 10/01/24 06:45 10/01/24 06:46 DC 10/01/24 08:21 Metronidazole 100 ml @ 100 mls/hr ONCE ONCE IV 10/01/24 08:45 10/01/24 09:44 DC 10/01/24 09:29 Ondansetron HCl 4 mg ONCE ONCE IV 10/01/24 06:45 10/01/24 06:46 DC 10/01/24 08:20 Piperacillin Sod/ Tazobactam Sod 100 ml @ 100 mls/hr ONCE ONCE IV 10/01/24 08:45 10/01/24 09:44 DC 10/01/24 09:29 Sodium Chloride 1,000 ml @ 1,000 mls/hr Q1H ONCE IV 10/01/24 06:45 10/01/24 07:44 DC 10/01/24 08:20 Departure 1 Departure Time of Disposition: 07:13 Impression: Primary Impression: Uncontrolled diabetes mellitus Qualified Codes: E13.65 - Other specified diabetes mellitus with hyperglycemia Additional Impressions: Acute abdominal pain Sepsis, unspecified organism Qualified Codes: A41.9 - Sepsis, unspecified organism Kidney stone Disposition: ADMITTED INPATIENT Admit to: Med Surg Condition: Guarded Critical Care Note Critical Care Time?: No Stability Stability form required: No Heart Score Heart Score: Heart Score Response (Comments) Value History N/A 0 EKG N/A 0 Age N/A 0 Risk Factors N/A 0 Troponin N/A 0 Total 0 I personally scribed for JEWEL MONTEJO MD ([email or web address]) on 10/01/24 at 06:52. Electronically submitted by Angelique Pfeiffer ([email or web address]). I personally scribed for JEWEL MONTEJO MD ([email or web address]) on 10/01/24 at 10:15. Electronically submitted by Angelique Pfeiffer [email or web address]). JEWEL MONTEJO MD Oct 01, 2024 06:52
[2024-10-01 07:27] LABS: Anion Gap 9 (5-15); Carbon Dioxide 27 mmol/L (20-31); Chloride 103 mmol/L (98-107); Sodium 139 mmol/L (136-145)
[2024-10-01 07:30] LABS: Hematocrit 39.2 % (36.0-46.0); Hemoglobin 13.2 g/dL (12.2-16.2); Mean Corpuscular Hemoglobin 30.1 pg (28.0-32.0); Mean Corpuscular Volume 89.1 fL (80.0-100.0); Nucleated Red Blood Cells % 0.0 %
[2024-10-01 07:31] LABS: Calcium 11.3 mg/dL (8.7-10.4); Potassium 5.1 mmol/L (3.5-5.1)
[2024-10-01 07:33] LABS: BUN/Creatinine Ratio 17.4 (10.0-20.0); Blood Urea Nitrogen 20 mg/dL (9-23)
[2024-10-01 07:35] LABS: Glucose 330 mg/dL (74-106)
[2024-10-01 08:09] LABS: Urine Protein, UAD 1+ (Negative)
[2024-10-01] MEDS: ONDANSETRON HCL 4 MG/2 ML VIAL IV ONE (08:20)
[2024-10-01] MEDS: SODIUM CHLORIDE 0.9% 1,000 ML IV ONE ×3 (08:20→09:13)
[2024-10-01] MEDS: KETOROLAC TROMETH 30 MG/ML 1ML VIAL IV ONE (08:21)
--- NOTE | 2024-10-01 08:35 | DVH ---
CLINICAL INFORMATION: Renal stone. TECHNIQUE: Axial CT images of the abdomen and pelvis were obtained without IV contrast. Coronal and s agittal reformatted images were obtained, reviewed, and stored. Evaluation of the parenchymal organs is limited without IV contrast. Evaluation of the bowel and mesentery is limited without oral contras t. All CT scans at this medical facility are performed using dose modulation techniques as appropriat e to a performed exam including the following: Automated exposure control was utilized; adjustment of the MA and/or KV according to patient size; and use of iterative reconstruction technique. CTDIvol = 8.57 mGy DLP = 451.99 mGy-cm COMPARISON: CT ABD PELVIS WO CONTRAST on DOS: 01/03/22, [facility] on DOS: 09/18/21 FINDINGS: Lung bases: Lung bases are clear. Liver: Grossly unremarkable in its noncontrast enhanced appearance. No abnormal density or focal lesi on identified. Biliary: Cholecystectomy. Spleen: Unremarkable. Pancreas: Grossly unremarkable in its noncontrast enhanced appearance. Adrenal glands: Moderate atrophy. Kidneys: Moderate left hydronephrosis and hydroureter with obstructing 2.5 mm calculus in the distal left ureter near the ureterovesical junction. There is moderate left perinephric and periureteral str anding. Multiple small nonobstructing left renal calculi are seen, with the largest measuring up to 4 mm. Additional arterial calcifications are seen at the renal arianna bilaterally. Small nonobstructing calculus of the inferior pole of the right kidney measures up to 3.5 mm. Aorta/Vascular: Dense arterial calcification. No abdominal aortic aneurysm. Retroperitoneum: No mass or lymphadenopathy. Bowel/mesentery: Small hiatal hernia. No small bowel obstruction. No free air or free fluid. Appendix is visualized and appears unremarkable. Moderate stool in the colon. Pelvic organs: Grossly unremarkable. Bladder: Unremarkable. No mass. Abdominal wall: No mass or hernia. Bones: No acute fracture or suspicious intraosseous lesion. IMPRESSION: 1. Moderate left hydronephrosis and hydroureter with obstructing 2.5 mm calculus in the distal left u reter near the ureterovesical junction. Moderate left perinephric and periureteral stranding also not ed. 2. Additional small nonobstructing bilateral renal calculi. 3. Additional nonacute findings as detailed above.
[2024-10-01] MEDS: PIPERACILLIN-TAZOB 3.375GM 100 ML IV ONE (09:29)
[2024-10-01] MEDS: FUROSEMIDE 20 MG/2 ML VIAL IV ONE (09:31)
[2024-10-01] MEDS ORDERED: PATIENTS OWN MEDICATION (Rosuvastatin Calcium (Crestor) 1 TAB) PO SCH (10:45)
[2024-10-01] MEDS ORDERED: ACETAMINOPHEN 325 MG TAB PO PRN (10:45)
[2024-10-01] MEDS: SODIUM CHLORIDE 0.9% 1,000 ML IV SCH (10:45)
[2024-10-01] MEDS ORDERED: DEXTROSE (50%) 50ML SYRG IV PRN (10:45)
[2024-10-01] MEDS ORDERED: NIFE1TAB31 PO (10:48)
--- NOTE | 2024-10-01 11:04 | DVHHP2 ---
History of Present Illness Reason for Visit: Abdominal pain History of Present Illness Tracy Bass is a 63-year-old female with past medical history of diabetes, hypertension, hyperlipidemia, and CVA who came to the hospital for left sided pelvic pain. Patient states her pain began this morning about 0200. It started as pelvic pain, but it now radiating around to her left flank, and is worse with movement. She has been experiencing pain with urination, and recently began having hematuria, prompting her to come to the hospital. Cardiovascular: HTN, hyperipidemia Endocrine: Diabetes Past Surgical History: Cholecystectomy, CABG, Other (carpal tunel) Smoke: No ALCOHOL: none Drugs: None Lives: with Family Domestic Violence: Neg Review of Systems Constitutional: No: Fever, Chills, Sweats, Weakness, Malaise, Other Eyes: No: Pain, Vision change, Conjunctivae inflammation, Eyelid inflammation, Other, Redness ENT: No: Ear pain, Ear discharge, Nose pain, Nose discharge, Nose congestion, Mouth pain, Mouth swelling, Throat pain, Throat swelling, Other Respiratory: No: Cough, Dry, Shortness of breath, SOB with excertion, Wheezing, Hemoptysis, Pleuritic Pain, Sputum, Wheezing, Other Cardiovascular: No: Chest Pain, Palpitations, Orthopnea, Paroxysmal Noc. Dyspnea, Edema, Lt Headedness, Other Gastrointestinal: Nausea, Vomiting, Abdominal Pain (pelvic pain); No: Diarrhea, Constipation, Melena, Hematochezia, Other Genitourinary: No Dysuria, No Frequency, No Incontinence, No Hematuria, No Retention, No Other Musculoskeletal: No: other, neck pain, shoulder pain, arm pain, back pain, hand pain, leg pain, foot pain Skin: No: Rash, Lesions, Jaundice, Bruising, Other Neurological: No: Weakness, Numbness, Incoordination, Change in speech, Confusion, Seizures, Other Allergies: Coded Allergies: Lisinopril (Verified Allergy, Unknown, 11/04/21) Pregabalin (Verified Allergy, Unknown, 07/01/22) Tramadol (Verified Allergy, Unknown, 11/04/21) Medications Current Medications Medications Dose Ordered Sig/Mckayla Route Start Time Stop Time Status Last Admin Dose Admin Sodium Chloride 1,000 ml @ 100 mls/hr Q10H IV 10/01/24 10:45 UNV Acetaminophen/ Hydrocodone Bitart 1 tab Q4HP PRN PO 10/01/24 10:45 UNV Ondansetron HCl 4 mg Q4HP PRN IV 10/01/24 10:45 UNV Docusate Sodium 100 mg BIDPRN PRN PO 10/01/24 10:45 UNV Acetaminophen 650 mg Q6HP PRN PO 10/01/24 10:45 UNV Ketorolac Tromethamine 30 mg Q6HPRN PRN IV 10/01/24 10:45 10/06/24 10:44 UNV Ceftriaxone Sodium 50 ml @ 100 mls/hr DAILY@09 IV 10/02/24 09:00 UNV Diagnostic Test (Pha) 1 strip ACHS 10/01/24 11:30 UNV Insulin Human Regular HS SC 10/01/24 22:00 UNV Insulin Human Regular AC SC 10/01/24 11:30 UNV Dextrose 50 ml UD PRN IV 10/01/24 10:45 UNV Aspirin 81 mg DAILY PO 10/02/24 10:00 UNV Gabapentin 100 mg TID PO 10/01/24 14:00 UNV Methocarbamol 500 mg TID PO 10/01/24 14:00 UNV Metoprolol Succinate 50 mg DAILY PO 10/02/24 10:00 UNV Paroxetine HCl 10 mg DAILY PO 10/02/24 10:00 UNV Patient Own Medication 30 mg DAILY PO 10/02/24 10:00 UNV Patient Own Medication 1 tab 4X WEEK PO 10/01/24 10:45 UNV Patient Own Medication 40 mg DAILY PO 10/02/24 10:00 UNV Nifedipine 30 mg DAILY PO 10/02/24 10:00 UNV Exam Vital Signs Vital Signs Date Time Temp Pulse Resp B/P (MAP) Pulse Ox O2 Delivery O2 Flow Rate FiO2 10/01/24 09:31 141/63 10/01/24 07:52 98.2 84 16 97 98.2 General Appearance: Alert, Oriented X3, Cooperative, mild distress HEENT: Atraumatic, PERRLA Respiratory: Clear to auscultation, Normal air movement Cardiovascular: Regular rate, Normal S1, Normal S2, No murmurs Abdominal: Normal bowel sounds, Soft, Other (Pelvic pain) Extremities: No clubbing, No cyanosis, No edema, Normal pulses Skin: No rashes, No breakdown, No significant lesion Neuro: Normal gait, Normal speech, Strength at 5/5 X4 ext Psych/Mental Status: Mental status NL, Mood NL Labs/Xrays Labs Test 10/01/24 09:07 10/01/24 06:46 10/01/24 06:40 Range/Units Lactic Acid Level 1.3 0.4-2.0 mmol/L White Blood Count 14.7 H 4.4-10.8 10^3/uL Red Blood Count 4.40 4.0-5.20 10^6/uL Hemoglobin 13.2 12.2-16.2 g/dL Hematocrit 39.2 36.0-46.0 % Mean Corpuscular Volume 89.1 80.0-100.0 fL Mean Corpuscular Hemoglobin 30.1 28.0-32.0 pg Mean Corpuscular Hemoglobin Concent 33.8 32.0-36.0 g/dL Red Cell Distribution Width 13.7 11.8-14.3 % Platelet Count 332 140-450 10^3/uL Mean Platelet Volume 8.7 6.9-10.8 fL Neutrophils (%) (Auto) 83.1 H 37.0-80.0 % Lymphocytes (%) (Auto) 10.8 10.0-50.0 % Monocytes (%) (Auto) 5.5 0.0-12.0 % Eosinophils (%) (Auto) 0.3 0.0-7.0 % Basophils (%) (Auto) 0.3 0.0-2.0 % Neutrophils # (Auto) 12.2 H 1.6-8.6 10 ^3/uL Lymphocytes # (Auto) 1.6 0.4-5.4 10 ^3/uL Monocytes # (Auto) 0.8 0-1.3 10 ^3/uL Eosinophils # (Auto) 0 0-0.8 10 ^3/uL Basophils # (Auto) 0 0-0.2 10 ^3/uL Nucleated Red Blood Cells 0.0 % Sodium Level 139 136-145 mmol/L Potassium Level 5.1 3.5-5.1 mmol/L Chloride Level 103 98-107 mmol/L Carbon Dioxide Level 27 20-31 mmol/L Anion Gap 9 5-15 Blood Urea Nitrogen 20 9-23 mg/dL Creatinine 1.15 H 0.550-1.02 mg/dL Glomerular Filtration Rate Calc 54 >90 mL/min BUN/Creatinine Ratio 17.4 10.0-20.0 Serum Glucose 330 H 74-106 mg/dL Calcium Level 11.3 H 8.7-10.4 mg/dL Urine Color Light-yellow Yellow Urine Clarity Turbid H Clear Urine pH 5.5 5.0-9.0 Urine Specific [place] 1.026 1.001-1.035 Urine Protein 1+ H Negative Urine Ketones 1+ H Negative Urine Blood 1+ H Negative /uL Urine Nitrite Negative Negative Urine Bilirubin Negative Negative Urine Urobilinogen Normal Negative mg/dL Urine Leukocyte Esterase Negative Negative /uL Urine RBC 38 0 - 4 /hpf Urine Microscopic WBC 10 H 0-5 /HPF Urine Squamous Epithelial Cells Few <5 /hpf Urine Bacteria Few H None Seen /hpf Urine Hyaline Casts Few 0 - 2 /lpf Urine Mucus Few None Seen Urine Glucose 4+ H Normal mg/dL TECHNIQUE: Axial CT images of the abdomen and pelvis were obtained without IV contrast. FINDINGS: Lung bases: Lung bases are clear. Liver: Grossly unremarkable in its noncontrast enhanced appearance. No abnormal density or focal lesion identified. Biliary: Cholecystectomy. Spleen: Unremarkable. Pancreas: Grossly unremarkable in its noncontrast enhanced appearance. Adrenal glands: Moderate atrophy. Kidneys: Moderate left hydronephrosis and hydroureter with obstructing 2.5 mm calculus in the distal left ureter near the ureterovesical junction. There is moderate left perinephric and periureteral stranding. Multiple small nonobstructing left renal calculi are seen, with the largest measuring up to 4 mm. Additional arterial calcifications are seen at the renal arianna bilaterally. Small nonobstructing calculus of the inferior pole of the right kidney measures up to 3.5 mm. Aorta/Vascular: Dense arterial calcification. No abdominal aortic aneurysm. Retroperitoneum: No mass or lymphadenopathy. Bowel/mesentery: Small hiatal hernia. No small bowel obstruction. No free air or free fluid. Appendix is visualized and appears unremarkable. Moderate stool in the colon. Pelvic organs: Grossly unremarkable. Bladder: Unremarkable. No mass. Abdominal wall: No mass or hernia. Bones: No acute fracture or suspicious intraosseous lesion. IMPRESSION: 1. Moderate left hydronephrosis and hydroureter with obstructing 2.5 mm calculus in the distal left ureter near the ureterovesical junction. Moderate left perinephric and periureteral stranding also noted. 2. Additional small nonobstructing bilateral renal calculi. 3. Additional nonacute findings as detailed above. SEPSIS Sepsis Screen Date sepsis recognized/suspect: Oct 01, 2024 Time Sepsis recognized/suspect: 620 Recent Procedure: No On Antibiotic Therapy: No Respiratory Rate >20: No Heart Rate >90: No Temp<36 C (96.8 F) or >38.3 C: No SBP <90 or MAP <65 mmHG: No New Acute Mental Status Change: No Is the patient on CPAP, BIPAP,: No Physician Orders Ct Ab Pel Wo Con-No Oral Or Iv (10/01/24 06:40) Blood Culture (10/01/24 08:41) Sodium Chloride 0.9% (10/01/24 08:45) Admit (10/01/24 10:38) Code Status (10/01/24 10:38) 2 Gm Sodium Diet (10/01/24 Lunch) Sodium Chloride 0.9% (10/01/24 10:45) Hydrocodone-Acet 5/325mg Tab ([place] 5/32 (10/01/24 10:45) Ondansetron Hcl (Zofran) (10/01/24 10:45) Docusate Sodium Capsule (Colace Capsule) (10/01/24 10:45) Complete Blood Count (10/02/24 04:00) Comprehensive Metabolic Panel (10/02/24 04:00) Condition: Serious (10/01/24 10:38) Acetaminophen Tablet (Tylenol Tablet) (10/01/24 10:45) * Urology Consult (10/01/24 10:38) Ketorolac Injection (Toradol Injection) (10/01/24 10:45) Ceftriaxone 1gm/50ml D5w (Rocephin) (10/02/24 09:00) Glucose Blood (Accu-Chek Comfort Curve T (10/01/24 11:30) Insulin R (Human) (Insulin R) (10/01/24 22:00) Insulin R (Human) (Insulin R) (10/01/24 11:30) Dextrose 50% Syringe (10/01/24 10:45) Aspirin Enteric Coated Tablet (Ecotrin E (10/02/24 10:00) Gabapentin Capsule (Neurontin Capsule) (10/01/24 14:00) Methocarbamol (Robaxin) (10/01/24 14:00) Metoprolol Xl Succinate (Toprol Xl) (10/02/24 10:00) Paroxetine Tablet (Paxil Tablet) (10/02/24 10:00) (Nf) Isosorbide Mononitrate (Isosorbide (10/02/24 10:00) (Nf) Rosuvastatin Calcium (Crestor) (10/01/24 10:45) (Nf) Telmisartan (10/02/24 10:00) Nifedipine Er (Procardia Xl (Time-Releas (10/02/24 10:00) Vital Signs Date Time Temp Pulse Resp B/P (MAP) Pulse Ox O2 Delivery O2 Flow Rate FiO2 10/01/24 09:31 141/63 10/01/24 07:52 98.2 84 16 141/63 (89) 97 98.2 10/01/24 06:21 98.2 76 20 133/64 (87) 98 98.2 Laboratory Tests Test 10/01/24 06:46 10/01/24 09:07 White Blood Count 14.7 10^3/uL (4.4-10.8) H Lactic Acid Level 1.3 mmol/L (0.4-2.0) Medications Medications Dose Ordered Sig/Mckayla Route Start Time Stop Time Status Last Admin Dose Admin Furosemide 20 mg ONCE ONCE IV 10/01/24 08:45 10/01/24 08:48 DC 10/01/24 09:31 20 MG Ketorolac Tromethamine 30 mg ONCE ONCE IV 10/01/24 06:45 10/01/24 06:46 DC 10/01/24 08:21 30 MG Metronidazole 100 ml @ 100 mls/hr ONCE ONCE IV 10/01/24 08:45 10/01/24 09:44 DC 10/01/24 09:29 100 MLS/HR Ondansetron HCl 4 mg ONCE ONCE IV 10/01/24 06:45 10/01/24 06:46 DC 10/01/24 08:20 4 MG Piperacillin Sod/ Tazobactam Sod 100 ml @ 100 mls/hr ONCE ONCE IV 10/01/24 08:45 10/01/24 09:44 DC 10/01/24 09:29 100 MLS/HR Sodium Chloride 1,000 ml @ 1,000 mls/hr Q1H ONCE IV 10/01/24 06:45 10/01/24 07:44 DC 10/01/24 08:20 1,000 MLS/HR Assessment/Plan Assessment/Plan Assessment: Hydronephrosis, Hydroureteronephrosis, Kidney stones, Hypercalcemia, Hyperglycemia, Uncontrolled diabetes, Hypertension, Hyperlipidemia, Plan: Admit to Med-Surg, Urology consult, IV hydration, Flomax, A1c, Accu checks Q AC&HS with sliding scale, Home medications reconciled, Plan discussed with: Patient My Orders Orders - JOANNE WELLINGTON [employer] Procedure Category Date Status Time Admit ADMIT 10/01/24 Transmitted 10:38 Code Status CODE 10/01/24 Transmitted 10:38 2 Gm Sodium Diet DIET 10/01/24 Transmitted Lunch Sodium Chloride 0.9% PHA 10/01/24 Logged 10:45 Hydrocodone-Acet PHA 10/01/24 Logged 5/325mg Tab ([place] 10:45 Ondansetron Hcl PHA 10/01/24 Logged (Zofran) 10:45 Docusate Sodium PHA 10/01/24 Logged Capsule (Colace 10:45 Complete Blood Count LAB 10/02/24 Verified 04:00 Comprehensive LAB 10/02/24 Verified Metabolic Panel 04:00 Condition: Serious [place]ILLES 10/01/24 In Process 10:38 Acetaminophen Tablet PHA 10/01/24 Logged (Tylenol Tablet) 10:45 * Urology Consult CONS 10/01/24 Transmitted 10:38 Ketorolac Injection PHA 10/01/24 Logged (Toradol Injection) 10:45 Ceftriaxone 1gm/50ml PHA 10/02/24 Logged D5w (Rocephin) 09:00 Glucose Blood PHA 10/01/24 Logged (Accu-Chek Comfort 11:30 Insulin R (Human) PHA 10/01/24 Logged (Insulin R) 22:00 Insulin R (Human) PHA 10/01/24 Logged (Insulin R) 11:30 Dextrose 50% Syringe PHA 10/01/24 Logged 10:45 Aspirin Enteric PHA 10/02/24 Logged Coated Tablet 10:00 Gabapentin Capsule PHA 10/01/24 Logged (Neurontin Capsule) 14:00 Methocarbamol PHA 10/01/24 Logged (Robaxin) 14:00 Metoprolol Xl PHA 10/02/24 Logged Succinate (Toprol Xl) 10:00 Paroxetine Tablet PHA 10/02/24 Logged (Paxil Tablet) 10:00 (Nf) Isosorbide PHA 10/02/24 Logged Mononitrate 10:00 (Nf) Rosuvastatin PHA 10/01/24 Logged Calcium (Crestor) 10:45 (Nf) Telmisartan PHA 10/02/24 Logged 10:00 Nifedipine Er PHA 10/02/24 Logged (Procardia Xl 10:00 Date of Service: Oct 01, 2024 Billing Provider: JOANNE WELLINGTON Common Visit Codes: [id number] INP/OBS CARE (MOD) JOANNE WELLINGTON Oct 01, 2024 11:04
[2024-10-01] MEDS ORDERED: ATORVASTATIN 20 MG TAB PO SCH (11:30)
[2024-10-01] MEDS: ACCU-CHEK COMFORT CURVE STRIP VI SCH (11:42)
[2024-10-01] MEDS: TAMSULOSIN HYDROCHLORIDE 0.4 MG CAP PO ONE (11:42)
[2024-10-01] MEDS: InsuLIN REG 1unit/0.01ml Soln (100units/ml) SC SCH ×2 (11:43→22:30)
--- NOTE | 2024-10-01 11:46 | DVHINCON2 ---
Date of service: Oct 01, 2024 Referring Physician hospitalist Reason for Consultation ureteral stone History of Present Illness History Source: Patient, MD Notes Exam Limitations: No limitations HPI 63 y/o F, with PMHx of CVA, NC, TIA, DM, HTN, HLD, and kidney stones presents to the ED for CC of abdominal pain. Patient states, she has been experiencing LLQ abdominal pain with associated nausea and vomiting onset, 0200 this morning (10/01/24). Patient reports, pain to worsen with movement. Patient comments on, new symptoms of hematuria. Patient denies fever, chills, urinary frequency, hematochezia, or diarrhea. No other symptoms or modifying factors present at this time. Home Meds Active Scripts Tamsulosin Hcl (Flomax) 0.4 Mg Cap, 0.4 MG PO BID for 5 Days, #10 CAP Prov:CHICHI MCNEALDanaTOMMIE Radha DO 01/03/22 Reported Medications Nifedipine (Nifedipine Er) 30 Mg Tab, 1 TAB PO DAILY 10/01/24 Telmisartan (Telmisartan) 40 Mg Tab, 40 MG PO DAILY for HTN, TAB 11/04/21 Paroxetine (PAXIL TABLET) 20 Mg Tb, 0.5 TAB PO DAILY for DEPRESSION, #30 TAB 5 Refills 11/04/21 Insulin Aspart (Novolog Relion) 100 Unit/Ml Inj, 100 UNIT SC DAILY for diabetes, INJ 11/04/21 Metoprolol Succinate (Metoprolol Succinate Er) 50 Mg Tab, 50 MG PO DAILY for 30 Days, MG 09/25/21 Hydrocodone-Acetaminophen (Hydrocodone Bitartrate/AC 10-325 mg) 1 Tab Tab, 1 TAB PO BIDP PRN for PAIN, TAB 09/25/21 Omeprazole (Gnp Omeprazole) 20 Mg Tab, 1 TAB PO DAILY, #90 TAB 1 Refill 09/25/21 Rosuvastatin Calcium (Crestor) 10 Mg Tab, 1 TAB PO 4X WEEK for HYPERLIPIDEMIA, #30 TAB 5 Refills 09/25/21 Metformin HCl (Metformin Hydrochloride) 1,000 Mg Tab, 1000 MG PO BID for DIABETES, TAB 09/25/21 Isosorbide Mononitrate (Isosorbide Mononitrate Er) 30 Mg Tab, 30 MG PO DAILY for CHEST PAIN, MG 09/25/21 Aspirin (Aspir-Low) 81 Mg Tab, 81 MG PO DAILY for CHEST PAIN, MG 09/25/21 Methocarbamol (Methocarbamol) 500 Mg Tab, 500 MG PO TID for MUSCLE SPASM, TAB 09/25/21 Gabapentin (Gabapentin) 100 Mg Cap, 100 MG PO TID for NEUROPATHY 09/25/21 Discontinued Scripts Ciprofloxacin Hcl (Cipro) 500 Mg Tab, 500 MG PO BID for 7 Days, #14 Prov:SHYANN MCNEAL DO 01/03/22 Ondansetron (Zofran) 4 Mg Tab, 1 TAB PO Q6HR PRN for 7 Days, #28 TAB Prov:SHYANN MCNEAL DO 01/03/22 Review of Systems Constitutional: Fever Gastrointestinal: Nausea, Vomiting, Abdominal Pain Genitourinary: Pain H&P Exam Vital Signs Vital Signs Date Time Temp Pulse Resp B/P (MAP) Pulse Ox O2 Delivery O2 Flow Rate FiO2 10/01/24 10:54 97.7 70 16 124/85 (98) 96 97.7 Labs/Xrays [place] [id number] Ph: [phone] DIAGNOSTIC IMAGING Diagnostic Imaging Report : [id number] Signed PATIENT: COLLEEN BRITT ACCT: [id number] UNIT: [id number] : 1960 LOC: ER ROOM / BED: / AGE / SEX: 63 / F ADM STATUS: REG ER SERVICE 0640 ORDERING PHYSICIAN: JEWEL MONTEJO MD PROCEDURE(s): ABPL - CT AB PEL WO CON-NO ORAL OR IV REASON: stone ORDER NUMBER(s): [id number], ACCESSION NUMBER(s): [id number] CLINICAL INFORMATION: Renal stone. TECHNIQUE: Axial CT images of the abdomen and pelvis were obtained without IV contrast. Coronal and sagittal reformatted images were obtained, reviewed, and stored. Evaluation of the parenchymal organs is limited without IV contrast. Evaluation of the bowel and mesentery is limited without oral contrast. All CT scans at this medical facility are performed using dose modulation techniques as appropriate to a performed exam including the following: Automated exposure control was utilized; adjustment of the MA and/or KV according to patient size; and use of iterative reconstruction technique. CTDIvol = 8.57 mGy DLP = 451.99 mGy-cm COMPARISON: CT ABD PELVIS WO CONTRAST on DOS: 01/03/22, [facility] on DOS: 09/18/21 FINDINGS: Lung bases: Lung bases are clear. Liver: Grossly unremarkable in its noncontrast enhanced appearance. No abnormal density or focal lesion identified. Biliary: Cholecystectomy. Spleen: Unremarkable. Pancreas: Grossly unremarkable in its noncontrast enhanced appearance. Adrenal glands: Moderate atrophy. Kidneys: Moderate left hydronephrosis and hydroureter with obstructing 2.5 mm calculus in the distal left ureter near the ureterovesical junction. There is moderate left perinephric and periureteral stranding. Multiple small nonobstructing left renal calculi are seen, with the largest measuring up to 4 mm. Additional arterial calcifications are seen at the renal arianna bilaterally. Small nonobstructing calculus of the inferior pole of the right kidney measures up to 3.5 mm. Aorta/Vascular: Dense arterial calcification. No abdominal aortic aneurysm. Retroperitoneum: No mass or lymphadenopathy. Bowel/mesentery: Small hiatal hernia. No small bowel obstruction. No free air or free fluid. Appendix is visualized and appears unremarkable. Moderate stool in the colon. Pelvic organs: Grossly unremarkable. Bladder: Unremarkable. No mass. Abdominal wall: No mass or hernia. Bones: No acute fracture or suspicious intraosseous lesion. IMPRESSION: 1. Moderate left hydronephrosis and hydroureter with obstructing 2.5 mm calculus in the distal left ureter near the ureterovesical junction. Moderate left perinephric and periureteral stranding also noted. 2. Additional small nonobstructing bilateral renal calculi. 3. Additional nonacute findings as detailed above. ATED BY: CHRISTOPHER RODRIGEZ DO DICTATED DATE/TIME: 10/01/24832 SIGNED BY: CHRISTOPHER RODRIGEZ DO SIGNED DATE/TIME: 10/01/24832 CC: Labs Test 10/01/24 09:07 10/01/24 06:46 10/01/24 06:40 Range/Units Lactic Acid Level 1.3 0.4-2.0 mmol/L White Blood Count 14.7 H 4.4-10.8 10^3/uL Red Blood Count 4.40 4.0-5.20 10^6/uL Hemoglobin 13.2 12.2-16.2 g/dL Hematocrit 39.2 36.0-46.0 % Mean Corpuscular Volume 89.1 80.0-100.0 fL Mean Corpuscular Hemoglobin 30.1 28.0-32.0 pg Mean Corpuscular Hemoglobin Concent 33.8 32.0-36.0 g/dL Red Cell Distribution Width 13.7 11.8-14.3 % Platelet Count 332 140-450 10^3/uL Mean Platelet Volume 8.7 6.9-10.8 fL Neutrophils (%) (Auto) 83.1 H 37.0-80.0 % Lymphocytes (%) (Auto) 10.8 10.0-50.0 % Monocytes (%) (Auto) 5.5 0.0-12.0 % Eosinophils (%) (Auto) 0.3 0.0-7.0 % Basophils (%) (Auto) 0.3 0.0-2.0 % Neutrophils # (Auto) 12.2 H 1.6-8.6 10 ^3/uL Lymphocytes # (Auto) 1.6 0.4-5.4 10 ^3/uL Monocytes # (Auto) 0.8 0-1.3 10 ^3/uL Eosinophils # (Auto) 0 0-0.8 10 ^3/uL Basophils # (Auto) 0 0-0.2 10 ^3/uL Nucleated Red Blood Cells 0.0 % Sodium Level 139 136-145 mmol/L Potassium Level 5.1 3.5-5.1 mmol/L Chloride Level 103 98-107 mmol/L Carbon Dioxide Level 27 20-31 mmol/L Anion Gap 9 5-15 Blood Urea Nitrogen 20 9-23 mg/dL Creatinine 1.15 H 0.550-1.02 mg/dL Glomerular Filtration Rate Calc 54 >90 mL/min BUN/Creatinine Ratio 17.4 10.0-20.0 Serum Glucose 330 H 74-106 mg/dL Calcium Level 11.3 H 8.7-10.4 mg/dL Urine Color Light-yellow Yellow Urine Clarity Turbid H Clear Urine pH 5.5 5.0-9.0 Urine Specific [place] 1.026 1.001-1.035 Urine Protein 1+ H Negative Urine Ketones 1+ H Negative Urine Blood 1+ H Negative /uL Urine Nitrite Negative Negative Urine Bilirubin Negative Negative Urine Urobilinogen Normal Negative mg/dL Urine Leukocyte Esterase Negative Negative /uL Urine RBC 38 0 - 4 /hpf Urine Microscopic WBC 10 H 0-5 /HPF Urine Squamous Epithelial Cells Few <5 /hpf Urine Bacteria Few H None Seen /hpf Urine Hyaline Casts Few 0 - 2 /lpf Urine Mucus Few None Seen Urine Glucose 4+ H Normal mg/dL Assessment/Plan Problem List: (1) Renal colic on left side (2) Sepsis, unspecified organism (3) Hydronephrosis Plan expulsive measures strain urine blood and urine cultures Plan discussed with: Patient, Other SWAPNA CASTELAN NP Oct 01, 2024 11:46
[2024-10-01 11:50] VITALS: BP 126/50; PULSE 70; RESP 17; TEMP 98.6; O2SAT 96; O2SAT 98
[2024-10-01 13:14] VITALS: BP 119/45; PULSE 75; RESP 16; TEMP 98.9; O2SAT 98
[2024-10-01] MEDS ORDERED: GABAPENTIN 100 MG CAP PO SCH (14:00)
[2024-10-01] MEDS: METHOCARBAMOL 500 MG TAB PO SCH (15:02)
[2024-10-01 17:08] VITALS: BP 125/46; PULSE 76; RESP 17; TEMP 99.5; O2SAT 95
[2024-10-01 21:20] VITALS: BP 145/74; PULSE 80; RESP 18; TEMP 98.1; O2SAT 96
[2024-10-01] MEDS: KETOROLAC TROMETH 30 MG/ML 1ML VIAL IV PRN (23:44)
[2024-10-02] VITALS (7 sets, daily range): BP systolic 126–154; BP diastolic 51–76; PULSE 72–103; RESP 18; TEMP 97.6–98.4; O2SAT 94–98
[2024-10-02] MEDS: HYDROcodone-ACET 5/325MG TAB PO PRN (04:37)
[2024-10-02 05:03] LABS: Alanine Aminotransferase 30 U/L (7-40); Albumin 3.9 g/dL (3.2-4.8); Alkaline Phosphatase 82 U/L (46-116); Anion Gap 10 (5-15); BUN/Creatinine Ratio 22.0 (10.0-20.0); Bilirubin, Total 0.7 mg/dL (0.2-1.0); Blood Urea Nitrogen 20 mg/dL (9-23); Calcium 9.0 mg/dL (8.7-10.4); Carbon Dioxide 24 mmol/L (20-31); Potassium 4.5 mmol/L (3.5-5.1); Sodium 142 mmol/L (136-145); Total Protein 5.8 g/dL (5.7-8.2)
[2024-10-02 05:07] LABS: Chloride 108 mmol/L (98-107); Glucose 273 mg/dL (74-106); Hematocrit 33.3 % (36.0-46.0); Hemoglobin 11.2 g/dL (12.2-16.2); Mean Corpuscular Hemoglobin 30.3 pg (28.0-32.0); Mean Corpuscular Volume 89.8 fL (80.0-100.0); Nucleated Red Blood Cells % 0.2 %
[2024-10-02] MEDS: ONDANSETRON HCL 4 MG/2 ML VIAL IV PRN (05:31)
[2024-10-02] MEDS: cefTRIAXone 1GM/50ML D5W 50 ML IV SCH (09:42)
[2024-10-02] MEDS: GABAPENTIN 100 MG CAP PO SCH (09:43)
[2024-10-02] MEDS: PARoxetine 20 MG TAB PO SCH (09:43)
[2024-10-02] MEDS: ASPirin-EC 81 mg tab PO SCH (09:43)
[2024-10-02] MEDS: LOSARTAN POTASSIUM 50 MG TAB PO SCH (09:44)
[2024-10-02] MEDS: PANTOPRAZOLE 40 MG TAB PO SCH (09:45)
[2024-10-02] MEDS: METOPROLOL SUCCINATE XL 50 MG TAB PO SCH (09:45)
[2024-10-02] MEDS: ISOSORBIDE MONONITRATE ER 60 MG TAB PO SCH (09:53)
[2024-10-02] MEDS ORDERED: PATIENTS OWN MEDICATION (Omeprazole (Gnp Omeprazole) 1 TAB) PO SCH (10:00)
[2024-10-02] MEDS ORDERED: TELMISARTAN 40 MG PO SCH (10:00)
[2024-10-02] MEDS ORDERED: PATIENTS OWN MEDICATION (Isosorbide Mononitrate (Isosorbide Mononitrate Er) 30 MG) PO SCH (10:00)
[2024-10-02] MEDS ORDERED: DEXTROSE (50%) 50ML SYRG IV PRN (14:45)
--- NOTE | 2024-10-02 14:46 | DVHPN2 ---
Subjective Patient denies any pain at this time. Reviewed: Care Plan, H&P, Labs, Medications, Previous Orders Changes from previous H/P or p: No Changes General: Per HPI Eyes: No Pain, No Vision change, No Conjunctivae inflammation, No Eyelid inflammation, No Other, No Redness ENT: No Ear pain, No Ear discharge, No Nose pain, No Nose discharge, No Nose congestion, No Mouth pain, No Mouth swelling, No Throat pain, No Throat swelling, No Other Cardiovascular: No Chest Pain, No Palpitations, No Orthopnea, No Paroxysmal Noc. Dyspnea, No Edema, No Lt Headedness, No Other Respiratory: No Cough, No Dry, No Shortness of breath, No SOB with excertion, No Wheezing, No Hemoptysis, No Pleuritic Pain, No Sputum, No Other Gastrointestinal: Nausea, Vomiting, Abdominal Pain (pelvic pain); No Diarrhea, No Constipation, No Melena, No Hematochezia, No Other Genitourinary: No Dysuria, No Frequency, No Incontinence, No Hematuria, No Retention, No Other Musculoskeletal: No other, No neck pain, No shoulder pain, No arm pain, No back pain, No hand pain, No leg pain, No foot pain Skin: No Rash, No Lesions, No Jaundice, No Bruising, No Other Objective Vitals Vital Signs Date Time Temp Pulse Resp B/P (MAP) Pulse Ox O2 Delivery O2 Flow Rate FiO2 10/02/24 13:01 98.3 72 18 126/63 (84) 97 98.3 10/02/24 08:00 Room Air* 0 21 Intake/Output Intake and Output 10/02/24 07:00 Intake Total 1624 ml Balance 1624 ml Intake Oral 424 ml IV Total 1200 ml # Voids 2 General Appearance: Alert, Oriented X3, Cooperative, mild distress HEENT: Atraumatic, PERRLA Lungs: Clear to auscultation, Normal air movement Cardiovascular: Normal S1, Normal S2 Abdomen: Normal bowel sounds, Soft, No tenderness, No hepatospenomegaly, No masses Back: Flank Tenderness, Midline Tenderness Musculoskeletal: Normal sensory function, Normal motor function Neuro: Normal gait, Normal speech Skin: Dry, Intact Psych/Mental Status: Mental status NL, Mood NL Medications Current Medications Medications Dose Ordered Sig/Mckayla Route Start Time Stop Time Status Last Admin Dose Admin Sodium Chloride 1,000 ml @ 100 mls/hr Q10H IV 10/01/24 10:45 10/01/24 22:28 100 MLS/HR Acetaminophen/ Hydrocodone Bitart 1 tab Q4HP PRN PO 10/01/24 10:45 10/02/24 09:46 1 TAB Ondansetron HCl 4 mg Q4HP PRN IV 10/01/24 10:45 10/02/24 05:31 4 MG Docusate Sodium 100 mg BIDPRN PRN PO 10/01/24 10:45 Acetaminophen 650 mg Q6HP PRN PO 10/01/24 10:45 Ketorolac Tromethamine 30 mg Q6HPRN PRN IV 10/01/24 10:45 10/06/24 10:44 10/01/24 23:44 30 MG Ceftriaxone Sodium 50 ml @ 100 mls/hr DAILY@09 IV 10/02/24 09:00 10/02/24 09:42 100 MLS/HR Diagnostic Test (Pha) 1 strip ACHS 10/01/24 11:30 10/02/24 12:08 1 STRIP Dextrose 50 ml UD PRN IV 10/01/24 10:45 Aspirin 81 mg DAILY PO 10/02/24 10:00 10/02/24 09:43 81 MG Methocarbamol 500 mg TID PO 10/01/24 14:00 10/02/24 13:45 500 MG Metoprolol Succinate 50 mg DAILY PO 10/02/24 10:00 10/02/24 09:45 50 MG Paroxetine HCl 10 mg DAILY PO 10/02/24 10:00 10/02/24 09:43 10 MG Patient Own Medication 30 mg DAILY PO 10/02/24 10:00 UNV Patient Own Medication 1 tab 4X WEEK PO 10/01/24 10:45 UNV Patient Own Medication 40 mg DAILY PO 10/02/24 10:00 UNV Nifedipine 30 mg DAILY PO 10/02/24 10:00 10/02/24 09:46 30 MG Tamsulosin HCl 0.4 mg QPM PO 10/02/24 18:00 Isosorbide Mononitrate 30 mg DAILY PO 10/02/24 10:00 10/02/24 09:53 30 MG Losartan Potassium 50 mg DAILY PO 10/02/24 10:00 10/02/24 09:44 50 MG Atorvastatin Calcium 20 mg UD PO 10/01/24 11:30 Hold Gabapentin 300 mg DAILY PO 10/02/24 10:00 10/02/24 09:43 300 MG Patient Own Medication 1 tab DAILY PO 10/02/24 10:00 UNV Pantoprazole Sodium 40 mg DAILY PO 10/02/24 10:00 10/02/24 09:45 40 MG Diagnostic Test (Pha) 1 strip ACHS 10/02/24 17:00 UNV Insulin Human Regular HS SC 10/02/24 22:00 UNV Insulin Human Regular AC SC 10/02/24 17:00 UNV Dextrose 50 ml UD PRN IV 10/02/24 14:45 UNV Laboratory Results Laboratory Tests 10/02/24 04:00 Chemistry Test 10/02/24 04:00 Albumin 3.9 g/dL (3.2-4.8) Calcium Level 9.0 mg/dL (8.7-10.4) Total Protein 5.8 g/dL (5.7-8.2) LFT Test 10/02/24 04:00 Alanine Aminotransferase (ALT) 30 U/L (7-40) Alkaline Phosphatase 82 U/L (46-116) Aspartate Amino Transferase (AST) 19 U/L (13-40) Total Bilirubin 0.7 mg/dL (0.2-1.0) Urinalysis Test 10/01/24 06:40 Urine Color Light-yellow (Yellow) Urine Clarity Turbid (Clear) H Urine pH 5.5 (5.0-9.0) Urine Specific [place] 1.026 (1.001-1.035) Urine Protein 1+ (Negative) H Urine Ketones 1+ (Negative) H Urine Blood 1+ /uL (Negative) H Urine Nitrite Negative (Negative) Urine Bilirubin Negative (Negative) Urine Urobilinogen Normal mg/dL (Negative) Urine Leukocyte Esterase Negative /uL (Negative) Urine RBC 38 /hpf (0 - 4) Urine Microscopic WBC 10 /HPF (0-5) H Urine Squamous Epithelial Cells Few /hpf (<5) Urine Bacteria Few /hpf (None Seen) H Urine Hyaline Casts Few /lpf (0 - 2) Urine Mucus Few (None Seen) Urine Glucose 4+ mg/dL (Normal) H Microbiology Microbiology Date/Time Source Procedure Growth Status 10/01/24 09:07 Blood Blood Culture - Preliminary NO GROWTH AFTER 24 HOURS OF INCUBATION. Resulted Labs and/or images reviewed: Labs reviewed by me, Image(s) reviewed by me Assessment/Plan Assessment/Plan Impression: -left obstructive uropathy secondary to nephrolithiasis -left hydroureter nephrosis -diabetes mellitus -primary hypertension -chronic pain syndrome -complicated cystitis -sepsis Plan: -repeat left kidney ultrasound -stop insulin pump infusion -regular insulin sliding scale -continue antibiotic therapy with Rocephin -pain management -repeat labs in a.m. Total time spent with patient discussing and formulating plan of care: 35 minutes. This medical document was created using an electronic medical record system with [employer] dictation system. Although this document has been carefully reviewed, there may still be some phonetic and typographical errors. These areas are purely typographical due to imperfections of the software programs, and do not reflect any compromise in the patient's medical care. Plan discussed with: Patient, Other (RN) My Orders Orders - ELIER CASAS NP Procedure Category Date Status Time Communication Order ORDERS 10/02/24 Transmitted 14:32 Glucose Blood PHA 10/02/24 Logged (Accu-Chek Comfort 17:00 Insulin R (Human) PHA 10/02/24 Logged (Insulin R) 22:00 Insulin R (Human) PHA 10/02/24 Logged (Insulin R) 17:00 Dextrose 50% Syringe PHA 10/02/24 Logged 14:45 Kidney US 10/02/24 Transmitted 14:43 Date of Service: Oct 02, 2024 Billing Provider: ELIER CASAS NP Common Visit Codes: [id number] INP/OBS CARE(HIGH) ELIER CASAS NP Oct 02, 2024 14:46
--- NOTE | 2024-10-02 15:26 | DVH ---
INDICATION: Assess left hydro., nephrolithiasis TECHNIQUE: Multiple real-time sonographic images of the kidneys and bladder were obtained. COMPARISON: None FINDINGS: The right kidney measures 11 cm in length, which is normal in size. There is normal echogen icity of the right kidney. No hydronephrosis. The left kidney measures 10 cm in length, which is normal in size. There is normal echogenicity of th e left kidney. No hydronephrosis. No large intraluminal masses are seen in the bladder. IMPRESSION: 1. Normal sonographic appearance of the kidneys. No hydronephrosis.
[2024-10-02] MEDS ORDERED: LORA-1121 GT (16:15)
[2024-10-02] MEDS ORDERED: ZINC100T5 PO (16:15)
[2024-10-02] MEDS ORDERED: LIDO5PAD22 EX (16:15)
[2024-10-02] MEDS: InsuLIN REG 1unit/0.01ml Soln (100units/ml) SC SCH ×2 (17:00→22:00)
[2024-10-02] MEDS: ACCU-CHEK COMFORT CURVE STRIP VI SCH (17:19)
[2024-10-02] MEDS: TAMSULOSIN HYDROCHLORIDE 0.4 MG CAP PO SCH (17:21)
[2024-10-03 01:00] VITALS: BP 121/62; PULSE 80; RESP 18; TEMP 97.6; O2SAT 95
[2024-10-03 05:00] VITALS: BP 139/69; PULSE 78; RESP 18; TEMP 97.6; O2SAT 93
[2024-10-03 08:00] VITALS: PULSE 67; RESP 18; O2SAT 97
[2024-10-03] MEDS: DOCUSATE SOD 100 MG CAP PO PRN (08:49)
[2024-10-03 09:00] VITALS: BP 136/67; PULSE 78; RESP 17; TEMP 97.1; O2SAT 95
[2024-10-03 13:00] VITALS: BP 137/66; PULSE 72; RESP 18; TEMP 97.1; O2SAT 97
[2024-10-03] MEDS ORDERED: CEFD300C2 PO ×2 (13:50)
[2024-10-03 14:25] VITALS: BP 136/67; PULSE 78; TEMP 36.2
--- NOTE | 2024-10-03 14:57 | ECG ---
[facility] Test Date: 2024-10-02 Test Time: 02:45:17 Pat Name: COLLEEN BRITT Department: ER Room: 0298 A Gender: F [employer] Monitor: ER : 1960 Requested By: GRETCHEN ROBLES Order Number: [id number] Reading MD: Steve Langford Measurements Intervals [place] Rate: 94 P: 24 DC: 155 QRS: -5 QRSD: 83 T: 54 QT: 337 QTc: 422 Interpretive Statements Sinus rhythm Borderline repolarization abnormality Electronically Signed On 10-03-2024 16:59:39 PDT by Steve Langford Please click the below link to view image of tracing.
--- NOTE | 2024-10-03 15:18 | DVHDS2 ---
Discharge Summary Date of Admission Oct 01, 2024 at 10:38 Date of Discharge: Oct 03, 2024 Admitting Diagnosis Hydroureter nephrosis Labs/Diagnostic Data: Laboratory Results Test 10/03/24 11:22 10/02/24 04:00 10/01/24 09:07 10/01/24 06:46 POC Glucose 122 mg/dl (70-106) White Blood Count 6.1 10^3/uL (4.4-10.8) Red Blood Count 3.71 10^6/uL (4.0-5.20) Hemoglobin 11.2 g/dL (12.2-16.2) Hematocrit 33.3 % (36.0-46.0) Mean Corpuscular Volume 89.8 fL (80.0-100.0) Mean Corpuscular Hemoglobin 30.3 pg (28.0-32.0) Mean Corpuscular Hemoglobin Concent 33.7 g/dL (32.0-36.0) Red Cell Distribution Width 14.1 % (11.8-14.3) Platelet Count 271 10^3/uL (140-450) Mean Platelet Volume 8.9 fL (6.9-10.8) Neutrophils (%) (Auto) 65.5 % (37.0-80.0) Lymphocytes (%) (Auto) 24.9 % (10.0-50.0) Monocytes (%) (Auto) 8.0 % (0.0-12.0) Eosinophils (%) (Auto) 1.3 % (0.0-7.0) Basophils (%) (Auto) 0.3 % (0.0-2.0) Neutrophils # (Auto) 4.0 10 ^3/uL (1.6-8.6) Lymphocytes # (Auto) 1.5 10 ^3/uL (0.4-5.4) Monocytes # (Auto) 0.5 10 ^3/uL (0-1.3) Eosinophils # (Auto) 0.1 10 ^3/uL (0-0.8) Basophils # (Auto) 0 10 ^3/uL (0-0.2) Nucleated Red Blood Cells 0.2 % Sodium Level 142 mmol/L (136-145) Potassium Level 4.5 mmol/L (3.5-5.1) Chloride Level 108 mmol/L (98-107) Carbon Dioxide Level 24 mmol/L (20-31) Anion Gap 10 (5-15) Blood Urea Nitrogen 20 mg/dL (9-23) Creatinine 0.91 mg/dL (0.550-1.02) Glomerular Filtration Rate Calc 71 mL/min (>90) BUN/Creatinine Ratio 22.0 (10.0-20.0) Serum Glucose 273 mg/dL (74-106) Calcium Level 9.0 mg/dL (8.7-10.4) Total Bilirubin 0.7 mg/dL (0.2-1.0) Aspartate Amino Transferase (AST) 19 U/L (13-40) Alanine Aminotransferase (ALT) 30 U/L (7-40) Alkaline Phosphatase 82 U/L (46-116) Total Protein 5.8 g/dL (5.7-8.2) Albumin 3.9 g/dL (3.2-4.8) Lactic Acid Level 1.3 mmol/L (0.4-2.0) Hemoglobin A1c 7.4 % A1C (<5.7) Test 10/01/24 06:40 Urine Color Light-yellow (Yellow) Urine Clarity Turbid (Clear) Urine pH 5.5 (5.0-9.0) Urine Specific [place] 1.026 (1.001-1.035) Urine Protein 1+ (Negative) Urine Ketones 1+ (Negative) Urine Blood 1+ /uL (Negative) Urine Nitrite Negative (Negative) Urine Bilirubin Negative (Negative) Urine Urobilinogen Normal mg/dL (Negative) Urine Leukocyte Esterase Negative /uL (Negative) Urine RBC 38 /hpf (0 - 4) Urine Microscopic WBC 10 /HPF (0-5) Urine Squamous Epithelial Cells Few /hpf (<5) Urine Bacteria Few /hpf (None Seen) Urine Hyaline Casts Few /lpf (0 - 2) Urine Mucus Few (None Seen) Urine Glucose 4+ mg/dL (Normal) Other Laboratory Tests 10/02/24 04:00 Brief Hx & Hospital Course: History of Present Illness Tracy Bass is a 63-year-old female with past medical history of diabetes, hypertension, hyperlipidemia, and CVA who came to the hospital for left sided pelvic pain. Patient states her pain began this morning about 0200. It started as pelvic pain, but it now radiating around to her left flank, and is worse with movement. She has been experiencing pain with urination, and recently began having hematuria, prompting her to come to the hospital. Course of hospitalization: Patient was started on IV antibiotics: Rocephin, propulsion therapy, regular insulin sliding scale for her history of diabetes mellitus. Patient's pain has resolved. Repeat left renal ultrasound was performed which showed resolution of patient is hydronephrosis. Urology consultation was obtained with recommendations reviewed. Patient will be discharged home and continued on antibiotic therapy with cefdinir 300 mg p.o. b.i.d. for an additional five days. She will follow up with her PCP in 1-2 weeks. Patient will also continue all previous home medications. Physical examination General: Alert and Oriented x3. No acute distress. Well-nourished. Eyes: EOMI. Anicteric. HENT: Moist mucous membranes. Lungs: Clear to auscultation bilaterally. No accessory muscle use. Cardiovascular: Regular rate and rhythm. No murmur. No JVD. Abdomen: Soft, non-tender and non-distended. No palpable masses. Extremities: No edema. Non-tender. Skin: No rashes or lesions. Warm. Neurologic: No focal neurological deficits. CN II-XII grossly intact, but not individually tested. Psychiatric: Cooperative. Appropriate mood and affect. Total time spent with patient discussing and formulating plan of care: 35 minutes. This medical document was created using an electronic medical record system with [employer] dictation system. Although this document has been carefully reviewed, there may still be some phonetic and typographical errors. These areas are purely typographical due to imperfections of the software programs, and do not reflect any compromise in the patient's medical care. Consults/Reason for consult Urology: Obstructive uropathy Condition at Discharge: Fair Final Diagnosis/Problems List Obstructive uropathy Secondary diagnosis: -left obstructive uropathy secondary to nephrolithiasis -left hydroureter nephrosis -diabetes mellitus -primary hypertension -chronic pain syndrome -complicated cystitis -sepsis Discharge Disposition: Home Discharge Instruct/Medications Diet: Consistent carbohydrate, Cardiac 2g Na,low cholest Activity: No Restrictions, As Tolerated Follow Up/Referral: PCP in 1-2 weeks Medications: Cefdinir 300mg po bid x 5 days continue all home medications Scheduled Aspirin (Aspir-Low), 81 MG PO DAILY, (Reported) Cefdinir (Cefdinir), 1 CAP PO BID Gabapentin (Gabapentin), 100 MG PO TID, (Reported) Insulin Aspart (Novolog Relion), 100 UNIT SC DAILY, (Reported) Isosorbide Mononitrate (Isosorbide Mononitrate Er), 30 MG PO DAILY, (Reported) Metformin HCl (Metformin Hydrochloride), 1,000 MG PO BID, (Reported) Methocarbamol (Methocarbamol), 500 MG PO TID, (Reported) Metoprolol Succinate (Metoprolol Succinate Er), 50 MG PO DAILY, (Reported) Nifedipine (Nifedipine Er), 1 TAB PO DAILY, (Reported) Omeprazole (Gnp Omeprazole), 1 TAB PO DAILY, (Reported) Paroxetine (Paxil Tablet), 0.5 TAB PO DAILY, (Reported) Rosuvastatin Calcium (Crestor), 1 TAB PO 4X WEEK, (Reported) Tamsulosin Hcl (Flomax), 0.4 MG PO BID Telmisartan (Telmisartan), 40 MG PO DAILY, (Reported) Scheduled PRN Hydrocodone-Acetaminophen (Hydrocodone Bitartrate/AC 10-325 mg), 1 TAB PO BIDP PRN for PAIN, (Reported) Miscellaneous Medications Lidocaine (Lidocan), 5 % EX, (Reported) Lorazepam (Ativan Tablet), 0.5 MG GT, (Reported) Zinc Gluconate (Zinc), 100 MG PO, (Reported) Discontinued Medications Ciprofloxacin Hcl (Cipro), 500 MG PO BID Ondansetron (Zofran), 1 TAB PO Q6HR PRN 36 Discharge Statement: "Patient was advised to return to the ER or call 911 if any headaches, dizziness, shortness of breath, chest pain, abdominal pain, bleeding, fevers, or worsening of medical condition. Patient was counseled about treatment plan, medications, possible side effects, patientverbalized understanding. All questions were answered to the best of my ability. This discharge took greater then 30 minutes in planning, reviewing documentation, counseling the patient, and discussing with other team members." ASSESSMENT ASSESSMENT Assessment Obstructive uropathy Date of Service: Oct 03, 2024 Billing Provider: ELIER CASAS NP Common Visit Codes: 97088-PRW/OBS DISCH DAY >30min ELIER CASAS NP Oct 03, 2024 15:18
--- NOTE | 2024-10-04 13:28 | ECG ---
[facility] Test Date: 2024-10-03 Test Time: 11:59:45 Pat Name: COLLEEN BRITT Department: Room: 0298 A Gender: F Prepper: JAILYN : 1960 Requested By: JEWEL MONTEJO Order Number: [id number] Reading MD: Measurements Intervals [place] Rate: 70 P: 58 NE: 137 QRS: 71 QRSD: 91 T: 52 QT: 388 QTc: 419 Interpretive Statements Sinus rhythm Consider anterior infarct Please click the below link to view image of tracing.
== END 2024-10-03 15:00 | disposition home or self-care (01) | DRG 872 ==
LOC: ER 05:29 → OVERFLOW 10:38 → WEST WING 10-02 04:25
PROVIDERS: ADMIT Nurse Practitioner Acute Care; ATTEND Nurse Practitioner Acute Care
DX: A41.9 Sepsis, unspecified organism (principal); N13.6 Pyonephrosis; E83.52 Hypercalcemia; E11.65 Type 2 diabetes mellitus with hyperglycemia; I10 Essential (primary) hypertension; E78.5 Hyperlipidemia, unspecified; G89.4 Chronic pain syndrome; F32.A Depression, unspecified; F41.9 Anxiety disorder, unspecified; Z88.8 Allergy status to other drugs, medicaments and biological substances; Z79.2 Long term (current) use of antibiotics; Z79.84 Long term (current) use of oral hypoglycemic drugs; Z90.49 Acquired absence of other specified parts of digestive tract; Z79.899 Other long term (current) drug therapy; Z95.1 Presence of aortocoronary bypass graft; Z82.0 Family history of epilepsy and other diseases of the nervous system; Z86.73 Personal history of transient ischemic attack (TIA), and cerebral infarction without residual deficits; Z79.82 Long term (current) use of aspirin; Z79.4 Long term (current) use of insulin
CPT/HCPCS: 36415; 74176; 76775; 80048; 80053; 81001; 82962; 83036; 83605; 85025; 87040; 93005; 96365; 96375; 99291; G0378; J1815; J1885; J2405; J2543; J3490

== ENCOUNTER 2025-01-23 02:01 | Inpatient (IN) | payer OTHER, MEDICAID ==
[~2025-01-23] VITALS: Ht 142.2 cm; Wt 56.5 kg
[~2025-01-23 02:01] MED LIST changes: +CEFD300C2 PO; -CIPR-173 PO; +LIDO5PAD22 EX; +LORA-1121 PO; +NIFE1TAB31 PO; -ONDA-144 PO; +ZINC100T5 PO
[2025-01-23] MEDS: ACETAMINOPHEN 325 MG TAB PO ONE (03:15)
[2025-01-23 03:18] LABS: Hematocrit 36.4 % (36.0-46.0); Hemoglobin 12.1 g/dL (12.2-16.2); Mean Corpuscular Hemoglobin 29.9 pg (28.0-32.0); Mean Corpuscular Volume 89.9 fL (80.0-100.0); Nucleated Red Blood Cells % 0.0 %
[2025-01-23 03:28] LABS: Chloride 105 mmol/L (98-107); Potassium 4.8 mmol/L (3.5-5.1); Sodium 142 mmol/L (136-145)
[2025-01-23 03:29] LABS: Anion Gap 10 (5-15); Calcium 9.9 mg/dL (8.7-10.4); Carbon Dioxide 27 mmol/L (20-31)
[2025-01-23 03:34] LABS: BUN/Creatinine Ratio 19.6 (10.0-20.0); Blood Urea Nitrogen 18 mg/dL (9-23)
[2025-01-23 03:36] LABS: Glucose 181 mg/dL (74-106)
--- NOTE | 2025-01-23 03:37 | DVH ---
Exam: CT CT AB PEL WO CON-NO ORAL OR IV History: Flank Pain Comparison Study: CT CT AB PEL WO CON-NO ORAL OR IV on DOS: 10/01/24, CT ABD PELVIS WO CONTRAST on DOS: 01/03/22, [facility] on DOS: 09/18/21 TECHNIQUE: Multidetector CT of the abdomen and pelvis was performed from lung bases to pubic symphysis. Imaging was performed without IV contrast. Axial, coronal and sagittal multiplanar reformats were obtained from the axial data set by the technologist. Radiation optimization: All CT scans at this facility use at least one of these dose optimization techniques: automated exposure control mA and/or kV adjustment per patient size (includes targeted exams where dose is matched to clinical indication) or iterative reconstruction. Radiation Dose Information: CT Dose: CTDI volume is 6.3 mGy. Dose-length product is 304.24 mGy*cm FINDINGS: Evaluation of solid organs is limited due to lack of intravenous contrast use. Imaged portions of the lung bases appear unremarkable. There are coronary artery calcifications. Small hiatal hernia. Liver, spleen, and pancreas appear unremarkable. There has been prior cholecystectomy. Right kidney appears unremarkable. 0.4 cm calculus at the left ureterovesicular junction resulting in hydroureter and mild left hydronephrosis. There is marked perinephric fat stranding and fluid, likely due to calyceal rupture. Additional nonobstructing calculi in the left upper pole measuring 0.4 cm. 2 mm nonobstructing calculi in the right lower pole. There is no evidence of bowel obstruction or focal bowel wall thickening. No significant free fluid, free air, or adenopathy. No suspicious osseous lesion. IMPRESSION: 1. 0.4 cm calculus at the left ureterovesicular junction resulting in mild left hydroureteronephrosis. Findings suggest calyceal rupture. 2. Additional nonobstructing bilateral nephrolithiasis. 3. Small hiatal hernia. 4. Coronary artery calcifications.
[2025-01-23 03:48] LABS: Urine Protein, UAD 1+ (Negative)
--- NOTE | 2025-01-23 04:03 | ED.PDOC ---
History of Present Illness HPI Comments 64-year-old female who presents to the emergency department with left flank pain that started a proximally and p.m.. Pain is in the left lower quadrant and left flank. It is associated with chills. It is associated with dysuria. She denies any nausea, vomiting or hematuria. She does have a history of kidney stones in the past. This pain feels similar to kidney stones which she has had in the past. Pain is currently 9/10 in severity. She has a has a past medical history of diabetes, double bypass in 2002, MD, TIA, hyperlipidemia, hypertension, rheumatoid arthritis, lupus. REVIEW OF SYSTEMS: General: No fever, no chills, or fatigue HEENT: No sore throat, no earache, no congestion, no neck pain. Cardiac: No chest pain. No palpitations. Lungs: No shortness of breath, no cough. GI: No nausea, no vomiting, no diarrhea, no constipation, + abdominal pain : No dysuria, frequency, or urgency. No hematuria. + left flank pain Musculoskeletal: No joint pain , no joint swelling, no extremity edema. Skin: No rash, no itching. Neuro: No headache, no dizziness, no weakness (And as sated in HPI) PHYSICAL EXAM: General: Awake, alert and oriented. No acute distress. Skin: Skin in warm, dry and intact. Appropriate color for ethnicity. HEENT: The head is normocephalic and atraumatic. Conjunctivae are clear without exudates or hemorrhage. Sclera is non-icteric. Eyelids are normal in appearance without swelling or lesions. Oral mucosa is pink and moist Neck: The neck is supple with normal range of motion. No JVD. Cardiac: Heart rate and rhythm are normal. No murmurs, gallops, or rubs are auscultated. Respiratory: No signs of respiratory distress. Lung sounds are clear in all lobes bilaterally without rales, rhonchi, or wheezes. Abdominal: Abdomen is soft, positive left flank tenderness Extremities: Upper and lower extremities are atraumatic in appearance without deformity or edema. Neurological: The patient is awake, alert and oriented to person, place, and time with normal speech. Speech is clear. There is no facial asymmetry. Normal gait. Psychiatric: Appropriate mood and affect. Good judgement and insight. Chief Complaint: Flank Pain Time Seen by MD: 02:46 Primary Care Provider: LYNN Allergies: Coded Allergies: Lisinopril (Verified Allergy, Unknown, 11/04/21) Pregabalin (Verified Allergy, Unknown, 07/01/22) Tramadol (Verified Allergy, Unknown, 11/04/21) Home Meds Active Scripts Cefdinir (Cefdinir) 300 Mg Cap, 1 CAP PO BID for 5 Days, #10 CAP Prov:ELIER CASAS RADIOISOTOPE TECHNICIAN 10/03/24 Tamsulosin Hcl (Flomax) 0.4 Mg Cap, 0.4 MG PO BID for 5 Days, #10 CAP Prov:SHYANN MCNEAL DO 01/03/22 Reported Medications Lidocaine (Lidocan) 5 % Pad, 5 % EX, PAD 10/02/24 Lorazepam (ATIVAN TABLET) 0.5 Mg Tb, 0.5 MG GT, TAB 10/02/24 Zinc Gluconate (ZINC) 100 Mg Tab, 100 MG PO, TAB 10/02/24 Nifedipine (Nifedipine Er) 30 Mg Tab, 1 TAB PO DAILY 10/01/24 Telmisartan (Telmisartan) 40 Mg Tab, 40 MG PO DAILY for HTN, TAB 11/04/21 Paroxetine (PAXIL TABLET) 20 Mg Tb, 0.5 TAB PO DAILY for DEPRESSION, #30 TAB 5 Refills 11/04/21 Insulin Aspart (Novolog Relion) 100 Unit/Ml Inj, 100 UNIT SC DAILY for diabetes, INJ 11/04/21 Metoprolol Succinate (Metoprolol Succinate Er) 50 Mg Tab, 50 MG PO DAILY for 30 Days, MG 09/25/21 Hydrocodone-Acetaminophen (Hydrocodone Bitartrate/AC 10-325 mg) 1 Tab Tab, 1 TAB PO BIDP PRN for PAIN, TAB 09/25/21 Omeprazole (Gnp Omeprazole) 20 Mg Tab, 1 TAB PO DAILY, #90 TAB 1 Refill 09/25/21 Rosuvastatin Calcium (Crestor) 10 Mg Tab, 1 TAB PO 4X WEEK for HYPERLIPIDEMIA, #30 TAB 5 Refills 09/25/21 Metformin HCl (Metformin Hydrochloride) 1,000 Mg Tab, 1000 MG PO BID for DIABETES, TAB 09/25/21 Isosorbide Mononitrate (Isosorbide Mononitrate Er) 30 Mg Tab, 30 MG PO DAILY for CHEST PAIN, MG 09/25/21 Aspirin (Aspir-Low) 81 Mg Tab, 81 MG PO DAILY for CHEST PAIN, MG 09/25/21 Methocarbamol (Methocarbamol) 500 Mg Tab, 500 MG PO TID for MUSCLE SPASM, TAB 09/25/21 Gabapentin (Gabapentin) 100 Mg Cap, 100 MG PO TID for NEUROPATHY 09/25/21 Mode of Arrival: Ambulatory Past Medical History PAST MEDICAL HISTORY: Anxiety, CVA, DM, High Lipids, HTN, Kidney Stones, MD, TIA Surgical History: CABG, Cholecystectomy CHILD PROTECTIVE SERVICES SPECIALIST History: No Pertinent CHILD PROTECTIVE SERVICES SPECIALIST History Family History Family History: Reviewed,noncontributory to illness, Family hx of heart sylvia, Family hx of Kidney sylvia Family History (Other): Alzheimer's disease Social History Smoker: Non-Smoker Alcohol: Denies ETOH Use Drugs: Denies Drug Use Lives In: Home Was a procedure done? Was a procedure done?: No Differential Dx Considerations may include: Differential diagnoses considered include but are not limited to pyelonephritis, UTI, nephrolithiasis, PUD, musculoskeletal pain, AAA, other X-Ray, Labs, Meds, VS Vital Signs Date Time Temp Pulse Resp B/P (MAP) Pulse Ox O2 Delivery O2 Flow Rate FiO2 01/23/25 03:50 Room Air* 0 21 01/23/25 03:18 97.7 69 16 182/78 (112) 96 97.7 01/23/25 02:03 98.1 66 18 172/82 96 98.1 Lab Test 01/23/25 03:15 01/23/25 03:08 Range/Units Urine Color Light-yellow Yellow Urine Clarity Clear Clear Urine pH 5.0 5.0-9.0 Urine Specific [place] 1.027 1.001-1.035 Urine Protein 1+ H Negative Urine Ketones Negative Negative Urine Blood Negative Negative /uL Urine Nitrite Negative Negative Urine Bilirubin Negative Negative Urine Urobilinogen Normal Negative mg/dL Urine Leukocyte Esterase Trace Negative /uL Urine RBC 7 0 - 4 /hpf Urine Microscopic WBC 3 0-5 /HPF Urine Squamous Epithelial Cells Few <5 /hpf Urine Bacteria None seen None Seen /hpf Urine Glucose 3+ H Normal mg/dL White Blood Count 12.4 H 4.4-10.8 10^3/uL Red Blood Count 4.05 4.0-5.20 10^6/uL Hemoglobin 12.1 L 12.2-16.2 g/dL Hematocrit 36.4 36.0-46.0 % Mean Corpuscular Volume 89.9 80.0-100.0 fL Mean Corpuscular Hemoglobin 29.9 28.0-32.0 pg Mean Corpuscular Hemoglobin Concent 33.3 32.0-36.0 g/dL Red Cell Distribution Width 13.5 11.8-14.3 % Platelet Count 303 140-450 10^3/uL Mean Platelet Volume 8.3 6.9-10.8 fL Neutrophils (%) (Auto) 68.0 37.0-80.0 % Lymphocytes (%) (Auto) 22.9 10.0-50.0 % Monocytes (%) (Auto) 6.7 0.0-12.0 % Eosinophils (%) (Auto) 1.9 0.0-7.0 % Basophils (%) (Auto) 0.5 0.0-2.0 % Neutrophils # (Auto) 8.4 1.6-8.6 10 ^3/uL Lymphocytes # (Auto) 2.8 0.4-5.4 10 ^3/uL Monocytes # (Auto) 0.8 0-1.3 10 ^3/uL Eosinophils # (Auto) 0.2 0-0.8 10 ^3/uL Basophils # (Auto) 0.1 0-0.2 10 ^3/uL Nucleated Red Blood Cells 0.0 % Sodium Level 142 136-145 mmol/L Potassium Level 4.8 3.5-5.1 mmol/L Chloride Level 105 98-107 mmol/L Carbon Dioxide Level 27 20-31 mmol/L Anion Gap 10 5-15 Blood Urea Nitrogen 18 9-23 mg/dL Creatinine 0.92 0.550-1.02 mg/dL Glomerular Filtration Rate Calc 70 >90 mL/min BUN/Creatinine Ratio 19.6 10.0-20.0 Serum Glucose 181 H 74-106 mg/dL Calcium Level 9.9 8.7-10.4 mg/dL Current Medications Medications (Trade) Dose Ordered Sig/Mckayla Route Start Time Stop Time Status Last Admin Acetaminophen (Tylenol Tablet) 650 mg ONCE ONCE PO 01/23/25 03:00 01/23/25 03:01 DC 01/23/25 03:15 PATIENT: COLLEEN BRITT ACCT: [id number] UNIT: [id number] : 1960 LOC: ER ROOM / BED: / AGE / SEX: 64 / F ADM STATUS: REG ER SERVICE 0251 ORDERING PHYSICIAN: JAMIL HAYDEN MD PROCEDURE(s): ABPL - CT AB PEL WO CON-NO ORAL OR IV REASON: Flank Pain ORDER NUMBER(s): [id number], ACCESSION NUMBER(s): [id number] Exam: CT CT AB PEL WO CON-NO ORAL OR IV History: Flank Pain Comparison Study: CT CT AB PEL WO CON-NO ORAL OR IV on DOS: 10/01/24, CT ABD PELVIS WO CONTRAST on DOS: 01/03/22, [facility] on DOS: 09/18/21 TECHNIQUE: Multidetector CT of the abdomen and pelvis was performed from lung bases to pubic symphysis. Imaging was performed without IV contrast. Axial, coronal and sagittal multiplanar reformats were obtained from the axial data set by the technologist. Radiation optimization: All CT scans at this facility use at least one of these dose optimization techniques: automated exposure control mA and/or kV adjustment per patient size (includes targeted exams where dose is matched to clinical indication) or iterative reconstruction. Radiation Dose Information: CT Dose: CTDI volume is 6.3 mGy. Dose-length product is 304.24 mGy*cm FINDINGS: Evaluation of solid organs is limited due to lack of intravenous contrast use. Imaged portions of the lung bases appear unremarkable. There are coronary artery calcifications. Small hiatal hernia. Liver, spleen, and pancreas appear unremarkable. There has been prior cholecystectomy. Right kidney appears unremarkable. 0.4 cm calculus at the left ureterovesicular junction resulting in hydroureter and mild left hydronephrosis. There is marked perinephric fat stranding and fluid, likely due to calyceal rupture. Additional nonobstructing calculi in the left upper pole measuring 0.4 cm. 2 mm nonobstructing calculi in the right lower pole. There is no evidence of bowel obstruction or focal bowel wall thickening. No significant free fluid, free air, or adenopathy. No suspicious osseous lesion. IMPRESSION: 1. 0.4 cm calculus at the left ureterovesicular junction resulting in mild left hydroureteronephrosis. Findings suggest calyceal rupture. 2. Additional nonobstructing bilateral nephrolithiasis. 3. Small hiatal hernia. 4. Coronary artery calcifications. Time of 1ST Reevaluation: 04:02 Reevaluation 1ST: Unchanged Patient Education/Counseling: Need For Follow Up Family Education/Counseling: No Family Present SEPSIS Sepsis Screen Date sepsis recognized/suspect: Jan 23, 2025 Time Sepsis recognized/suspect: 020 Recent Procedure: No On Antibiotic Therapy: No Respiratory Rate >20: No Heart Rate >90: No Temp<36 C (96.8 F) or >38.3 C: No SBP <90 or MAP <65 mmHG: No New Acute Mental Status Change: No Is the patient on CPAP, BIPAP,: No Physician Orders Ct Ab Pel Wo Con-No Oral Or Iv (01/23/25 02:51) Nifedipine Er (Procardia Xl (Time-Releas (01/23/25 10:00) Atorvastatin (Lipitor) (01/23/25 22:00) Gabapentin Capsule (Neurontin Capsule) (01/23/25 10:00) (Nf) Telmisartan (01/23/25 10:00) * Urology Consult (01/23/25 04:27) Basic Metabolic Panel (01/24/25 04:00) Glucose Blood (Accu-Chek Comfort Curve T (01/23/25 07:00) Insulin R (Human) (Insulin R) (01/23/25 07:00) Dextrose 50% Syringe (01/23/25 04:30) Admit (01/23/25 04:27) Hydrocodone-Acet 5/325mg Tab ([place] 5/32 (01/23/25 04:30) Ondansetron Hcl (Zofran) (01/23/25 04:30) Complete Blood Count (01/24/25 04:00) Condition: Stable (01/23/25 04:27) Acetaminophen Tablet (Tylenol Tablet) (01/23/25 04:30) Bedrest With Bathroom Privileg (01/23/25 04:27) Ketorolac Injection (Toradol Injection) (01/23/25 04:30) Clonidine Hcl Tablet (Catapres Tablet) (01/23/25 04:45) Vital Signs Date Time Temp Pulse Resp B/P (MAP) Pulse Ox O2 Delivery O2 Flow Rate FiO2 01/23/25 03:50 Room Air* 0 21 01/23/25 03:18 97.7 69 16 182/78 (112) 96 97.7 01/23/25 02:03 98.1 66 18 172/82 96 98.1 Laboratory Tests Test 01/23/25 03:08 White Blood Count 12.4 10^3/uL (4.4-10.8) H Medications Medications Dose Ordered Sig/Mckayla Route Start Time Stop Time Status Last Admin Dose Admin Acetaminophen 650 mg ONCE ONCE PO 01/23/25 03:00 01/23/25 03:01 DC 01/23/25 03:15 Departure 1 Departure Time of Disposition: 04:03 Impression: Primary Impression: Nephrolithiasis Disposition: ADMITTED INPATIENT Condition: Stable Comments 64-year-old female who lives flank pain. Imaging suggestive calcium rupture along with nephrolithiasis. Patient admitted to hospitalist service for further treatment, evaluation and monitoring. Critical Care Note Critical Care Time?: No Stability Stability form required: No Heart Score Heart Score: Heart Score Response (Comments) Value History N/A 0 EKG N/A 0 Age N/A 0 Risk Factors N/A 0 Troponin N/A 0 Total 0 JAMIL HAYDEN MD Jan 23, 2025 04:03
[2025-01-23] MEDS ORDERED: HYDROcodone-ACET 5/325MG TAB PO PRN (04:30)
[2025-01-23] MEDS ORDERED: ACETAMINOPHEN 325 MG TAB PO PRN (04:30)
[2025-01-23] MEDS ORDERED: DEXTROSE (50%) 50ML SYRG IV PRN (04:30)
--- NOTE | 2025-01-23 04:49 | DVHHP2 ---
History of Present Illness Reason for Visit: Flank pain History of Present Illness 64-year-old female presents for evaluation of flank pain. Patient reports developing left-sided flank pain last night. Denies nausea or vomiting. No fever or chills. She does report a history of kidney stones. Past Medical History Diabetes mellitus, CVA, dyslipidemia, kidney stones, mi, hypertension Past Surgical History CABG, cholecystectomy Family History Noncontributory Smoke: No ALCOHOL: none Drugs: None Lives: with Family Review of Systems Review of Systems Review of systems are currently negative otherwise addressed in HPI. Allergies: Coded Allergies: Lisinopril (Verified Allergy, Unknown, 11/04/21) Pregabalin (Verified Allergy, Unknown, 07/01/22) Tramadol (Verified Allergy, Unknown, 11/04/21) Medications Current Medications Medications Dose Ordered Sig/Mckayla Route Start Time Stop Time Status Last Admin Dose Admin Nifedipine 30 mg DAILY PO 01/23/25 10:00 Atorvastatin Calcium 10 mg HS PO 01/23/25 22:00 Gabapentin 300 mg BID PO 01/23/25 10:00 Losartan Potassium 50 mg DAILY PO 01/23/25 10:00 Diagnostic Test (Pha) 1 strip ACHS 01/23/25 07:00 Insulin Human Regular ACHS SC 01/23/25 07:00 Dextrose 50 ml UD PRN IV 01/23/25 04:30 Acetaminophen/ Hydrocodone Bitart 1 tab Q4HP PRN PO 01/23/25 04:30 Ondansetron HCl 4 mg Q4HP PRN IV 01/23/25 04:30 Acetaminophen 650 mg Q6HP PRN PO 01/23/25 04:30 Ketorolac Tromethamine 15 mg Q6HPRN PRN IV 01/23/25 04:30 01/28/25 04:29 Clonidine HCl 0.1 mg Q6HP PRN PO 01/23/25 04:45 Exam Vital Signs Vital Signs Date Time Temp Pulse Resp B/P (MAP) Pulse Ox O2 Delivery O2 Flow Rate FiO2 01/23/25 03:50 Room Air* 0 21 01/23/25 03:18 97.7 69 16 182/78 (112) 96 97.7 Exam Gen: 64-year-old female in mild distress Skin: Warm, dry, normal color and texture, no rash. HEENT: Normocephalic atraumatic, mucous membranes moist and pink. Neck: Cervical and supraclavicular nodes normal without enlargement, trachea is midline, thyroid gland is normal without masses. Pulmonary: Clear to auscultation and percussion bilaterally. Cardiac: Regular rate and rhythm. No murmur Abdomen: Soft, left CVA tenderness, nondistended, bowel sounds present all 4 quadrants, no guarding, no rigidity, no organomegaly. Extremities: No cyanosis, clubbing, no edema Neuro: Cranial nerves II through XII grossly intact, normal affect and speech, no focal motor deficits. Labs/Xrays ORDERING PHYSICIAN: JAMIL HAYDEN MD PROCEDURE(s): ABPL - CT AB PEL WO CON-NO ORAL OR IV REASON: Flank Pain ORDER NUMBER(s): [id number], ACCESSION NUMBER(s): [id number] Exam: CT CT AB PEL WO CON-NO ORAL OR IV History: Flank Pain Comparison Study: CT CT AB PEL WO CON-NO ORAL OR IV on DOS: 10/01/24, CT ABD PELVIS WO CONTRAST on DOS: 01/03/22, [facility] on DOS: 09/18/21 TECHNIQUE: Multidetector CT of the abdomen and pelvis was performed from lung bases to pubic symphysis. Imaging was performed without IV contrast. Axial, coronal and sagittal multiplanar reformats were obtained from the axial data set by the technologist. Radiation optimization: All CT scans at this facility use at least one of these dose optimization techniques: automated exposure control mA and/or kV adjustment per patient size (includes targeted exams where dose is matched to clinical indication) or iterative reconstruction. Radiation Dose Information: CT Dose: CTDI volume is 6.3 mGy. Dose-length product is 304.24 mGy*cm FINDINGS: Evaluation of solid organs is limited due to lack of intravenous contrast use. Imaged portions of the lung bases appear unremarkable. There are coronary artery calcifications. Small hiatal hernia. Liver, spleen, and pancreas appear unremarkable. There has been prior cholecystectomy. Right kidney appears unremarkable. 0.4 cm calculus at the left ureterovesicular junction resulting in hydroureter and mild left hydronephrosis. There is marked perinephric fat stranding and fluid, likely due to calyceal rupture. Additional nonobstructing calculi in the left upper pole measuring 0.4 cm. 2 mm nonobstructing calculi in the right lower pole. There is no evidence of bowel obstruction or focal bowel wall thickening. No significant free fluid, free air, or adenopathy. No suspicious osseous lesion. IMPRESSION: 1. 0.4 cm calculus at the left ureterovesicular junction resulting in mild left hydroureteronephrosis. Findings suggest calyceal rupture. 2. Additional nonobstructing bilateral nephrolithiasis. 3. Small hiatal hernia. 4. Coronary artery calcifications. Labs Test 01/23/25 03:15 01/23/25 03:08 Range/Units Urine Color Light-yellow Yellow Urine Clarity Clear Clear Urine pH 5.0 5.0-9.0 Urine Specific [place] 1.027 1.001-1.035 Urine Protein 1+ H Negative Urine Ketones Negative Negative Urine Blood Negative Negative /uL Urine Nitrite Negative Negative Urine Bilirubin Negative Negative Urine Urobilinogen Normal Negative mg/dL Urine Leukocyte Esterase Trace Negative /uL Urine RBC 7 0 - 4 /hpf Urine Microscopic WBC 3 0-5 /HPF Urine Squamous Epithelial Cells Few <5 /hpf Urine Bacteria None seen None Seen /hpf Urine Glucose 3+ H Normal mg/dL White Blood Count 12.4 H 4.4-10.8 10^3/uL Red Blood Count 4.05 4.0-5.20 10^6/uL Hemoglobin 12.1 L 12.2-16.2 g/dL Hematocrit 36.4 36.0-46.0 % Mean Corpuscular Volume 89.9 80.0-100.0 fL Mean Corpuscular Hemoglobin 29.9 28.0-32.0 pg Mean Corpuscular Hemoglobin Concent 33.3 32.0-36.0 g/dL Red Cell Distribution Width 13.5 11.8-14.3 % Platelet Count 303 140-450 10^3/uL Mean Platelet Volume 8.3 6.9-10.8 fL Neutrophils (%) (Auto) 68.0 37.0-80.0 % Lymphocytes (%) (Auto) 22.9 10.0-50.0 % Monocytes (%) (Auto) 6.7 0.0-12.0 % Eosinophils (%) (Auto) 1.9 0.0-7.0 % Basophils (%) (Auto) 0.5 0.0-2.0 % Neutrophils # (Auto) 8.4 1.6-8.6 10 ^3/uL Lymphocytes # (Auto) 2.8 0.4-5.4 10 ^3/uL Monocytes # (Auto) 0.8 0-1.3 10 ^3/uL Eosinophils # (Auto) 0.2 0-0.8 10 ^3/uL Basophils # (Auto) 0.1 0-0.2 10 ^3/uL Nucleated Red Blood Cells 0.0 % Sodium Level 142 136-145 mmol/L Potassium Level 4.8 3.5-5.1 mmol/L Chloride Level 105 98-107 mmol/L Carbon Dioxide Level 27 20-31 mmol/L Anion Gap 10 5-15 Blood Urea Nitrogen 18 9-23 mg/dL Creatinine 0.92 0.550-1.02 mg/dL Glomerular Filtration Rate Calc 70 >90 mL/min BUN/Creatinine Ratio 19.6 10.0-20.0 Serum Glucose 181 H 74-106 mg/dL Calcium Level 9.9 8.7-10.4 mg/dL SEPSIS Sepsis Screen Date sepsis recognized/suspect: Jan 23, 2025 Time Sepsis recognized/suspect: 020 Recent Procedure: No On Antibiotic Therapy: No Respiratory Rate >20: No Heart Rate >90: No Temp<36 C (96.8 F) or >38.3 C: No SBP <90 or MAP <65 mmHG: No New Acute Mental Status Change: No Is the patient on CPAP, BIPAP,: No Physician Orders Ct Ab Pel Wo Con-No Oral Or Iv (01/23/25 02:51) Nifedipine Er (Procardia Xl (Time-Releas (01/23/25 10:00) Atorvastatin (Lipitor) (01/23/25 22:00) Gabapentin Capsule (Neurontin Capsule) (01/23/25 10:00) Losartan Tablet (Cozaar Tablet) (01/23/25 10:00) * Urology Consult (01/23/25 04:27) Basic Metabolic Panel (01/24/25 04:00) Glucose Blood (Accu-Chek Comfort Curve T (01/23/25 07:00) Insulin R (Human) (Insulin R) (01/23/25 07:00) Dextrose 50% Syringe (01/23/25 04:30) Admit (01/23/25 04:27) Hydrocodone-Acet 5/325mg Tab ([place] 5/32 (01/23/25 04:30) Ondansetron Hcl (Zofran) (01/23/25 04:30) Complete Blood Count (01/24/25 04:00) Condition: Stable (01/23/25 04:27) Acetaminophen Tablet (Tylenol Tablet) (01/23/25 04:30) Bedrest With Bathroom Privileg (01/23/25 04:27) Ketorolac Injection (Toradol Injection) (01/23/25 04:30) Clonidine Hcl Tablet (Catapres Tablet) (01/23/25 04:45) Vital Signs Date Time Temp Pulse Resp B/P (MAP) Pulse Ox O2 Delivery O2 Flow Rate FiO2 01/23/25 03:50 Room Air* 0 21 01/23/25 03:18 97.7 69 16 182/78 (112) 96 97.7 01/23/25 02:03 98.1 66 18 172/82 96 98.1 Laboratory Tests Test 01/23/25 03:08 White Blood Count 12.4 10^3/uL (4.4-10.8) H Medications Medications Dose Ordered Sig/Mckayla Route Start Time Stop Time Status Last Admin Dose Admin Acetaminophen 650 mg ONCE ONCE PO 01/23/25 03:00 01/23/25 03:01 DC 01/23/25 03:15 650 MG Assessment/Plan Assessment/Plan Assessment Nephrolithiasis Left hydronephrosis Diabetes mellitus Hypertension Plan Admit the patient to [facility] to the hospitalist Urology consultation Resume home medications Pain management Continue treatment per orders. Plan discussed with: Patient My Orders Orders - GRETCHEN ROBLESWillie Procedure Category Date Status Time Nifedipine Er PHA 01/23/25 In Process (Procardia Xl 10:00 Atorvastatin (Lipitor) PHA 01/23/25 In Process 22:00 Gabapentin Capsule PHA 01/23/25 In Process (Neurontin Capsule) 10:00 Losartan Tablet PHA 01/23/25 In Process (Cozaar Tablet) 10:00 * Urology Consult CONS 01/23/25 Transmitted 04:27 Basic Metabolic Panel LAB 01/24/25 Verified 04:00 Glucose Blood PHA 01/23/25 In Process (Accu-Chek Comfort 07:00 Insulin R (Human) PHA 01/23/25 In Process (Insulin R) 07:00 Dextrose 50% Syringe PHA 01/23/25 In Process 04:30 Admit ADMIT 01/23/25 Transmitted 04:27 Hydrocodone-Acet PHA 01/23/25 In Process 5/325mg Tab ([place] 04:30 Ondansetron Hcl PHA 01/23/25 In Process (Zofran) 04:30 Complete Blood Count LAB 01/24/25 Verified 04:00 Condition: Stable GILLES 01/23/25 In Process 04:27 Acetaminophen Tablet PHA 01/23/25 In Process (Tylenol Tablet) 04:30 Bedrest With Bathroom GILLES 01/23/25 In Process Privileg 04:27 Ketorolac Injection PHA 01/23/25 In Process (Toradol Injection) 04:30 Clonidine Hcl Tablet PHA 01/23/25 In Process (Catapres Tablet) 04:45 Date of Service: Jan 23, 2025 Billing Provider: GRETCHEN ROBLES Common Visit Codes: [id number] INP/OBS CARE (MOD) GRETCHEN ROBLES Jan 23, 2025 04:49
[2025-01-23 05:00] VITALS: BP 149/53; PULSE 67; RESP 18; TEMP 98.2; O2SAT 93
[2025-01-23 05:50] VITALS: PULSE 67; RESP 16; O2SAT 95
[2025-01-23] MEDS: ONDANSETRON HCL 4 MG/2 ML VIAL IV PRN (06:05)
[2025-01-23] MEDS: KETOROLAC TROMETH 30 MG/ML 1ML VIAL IV PRN (06:05)
[2025-01-23] MEDS ORDERED: FERR1TAB31 PO (06:28)
[2025-01-23] MEDS ORDERED: CALC1TAB92 PO (06:28)
[2025-01-23] MEDS ORDERED: HYDR1TAB97 PO (06:28)
[2025-01-23] MEDS ORDERED: ASCO500T11 PO (06:28)
[2025-01-23] MEDS ORDERED: SENN-105 PO (06:28)
[2025-01-23] MEDS ORDERED: IBAN1TAB2 PO (06:28)
[2025-01-23] MEDS ORDERED: CYAN100056 PO (06:28)
[2025-01-23] MEDS ORDERED: CHOL100029 PO (06:28)
[2025-01-23] MEDS ORDERED: COEN100C15 PO (06:28)
[2025-01-23] MEDS: ACCU-CHEK COMFORT CURVE STRIP VI SCH (06:30)
[2025-01-23] MEDS: InsuLIN REG 1unit/0.01ml Soln (100units/ml) SC SCH (06:34)
[2025-01-23 08:40] VITALS: BP 124/56; PULSE 72; RESP 16; TEMP 97.9; O2SAT 94
[2025-01-23] MEDS: GABAPENTIN 300 MG CAP PO SCH (09:45)
[2025-01-23] MEDS: LOSARTAN POTASSIUM 50 MG TAB PO SCH (09:45)
--- NOTE | 2025-01-23 11:34 | DVH ---
INDICATION: Possible Calyceal rupture TECHNIQUE: Multiple real-time sonographic images of the kidneys and bladder were obtained. COMPARISON: US KIDNEY on DOS: 10/02/24 FINDINGS: The right kidney measures 10.3 cm in length, which is normal in size. There is normal echogenicity of the right kidney. No hydronephrosis. The left kidney measures 10.8 cm in length, which is normal in size. There is normal echogenicity of the left kidney. No hydronephrosis. Prior to voiding the bladder volume measures 26 cc. Bilateral ureteral jets not visualized. IMPRESSION: No collecting system dilatation.
[2025-01-23 13:00] VITALS: BP 132/60; PULSE 72; RESP 16; TEMP 98.1; O2SAT 97
--- NOTE | 2025-01-23 13:47 | DVHPN2 ---
Subjective still having some mild pain Reviewed: H&P Changes from previous H/P or p: No Changes Objective Vitals Vital Signs Date Time Temp Pulse Resp B/P (MAP) Pulse Ox O2 Delivery O2 Flow Rate FiO2 01/23/25 09:45 125/56 01/23/25 08:40 97.9 72 16 94 97.9 01/23/25 05:50 Room Air* 0 21 General Appearance: Alert, Oriented X3 HEENT: Atraumatic Cardiovascular: Regular rate, Normal S1, Normal S2 Abdomen: Normal bowel sounds Medications Current Medications Medications Dose Ordered Sig/Mckayla Route Start Time Stop Time Status Last Admin Dose Admin Nifedipine 30 mg DAILY PO 01/23/25 10:00 01/23/25 09:45 30 MG Atorvastatin Calcium 10 mg HS PO 01/23/25 22:00 Gabapentin 300 mg BID PO 01/23/25 10:00 01/23/25 09:45 300 MG Losartan Potassium 50 mg DAILY PO 01/23/25 10:00 01/23/25 09:45 50 MG Diagnostic Test (Pha) 1 strip ACHS 01/23/25 07:00 01/23/25 11:36 1 STRIP Insulin Human Regular ACHS SC 01/23/25 07:00 01/23/25 11:37 4 UNITS Dextrose 50 ml UD PRN IV 01/23/25 04:30 Acetaminophen/ Hydrocodone Bitart 1 tab Q4HP PRN PO 01/23/25 04:30 Ondansetron HCl 4 mg Q4HP PRN IV 01/23/25 04:30 01/23/25 06:05 4 MG Acetaminophen 650 mg Q6HP PRN PO 01/23/25 04:30 Ketorolac Tromethamine 15 mg Q6HPRN PRN IV 01/23/25 04:30 01/28/25 04:29 01/23/25 06:05 15 MG Clonidine HCl 0.1 mg Q6HP PRN PO 01/23/25 04:45 Laboratory Results Laboratory Tests 01/23/25 03:08 Chemistry Test 01/23/25 03:08 Calcium Level 9.9 mg/dL (8.7-10.4) Urinalysis Test 01/23/25 03:15 Urine Color Light-yellow (Yellow) Urine Clarity Clear (Clear) Urine pH 5.0 (5.0-9.0) Urine Specific [place] 1.027 (1.001-1.035) Urine Protein 1+ (Negative) H Urine Ketones Negative (Negative) Urine Blood Negative /uL (Negative) Urine Nitrite Negative (Negative) Urine Bilirubin Negative (Negative) Urine Urobilinogen Normal mg/dL (Negative) Urine Leukocyte Esterase Trace /uL (Negative) Urine RBC 7 /hpf (0 - 4) Urine Microscopic WBC 3 /HPF (0-5) Urine Squamous Epithelial Cells Few /hpf (<5) Urine Bacteria None seen /hpf (None Seen) Urine Glucose 3+ mg/dL (Normal) H Assessment/Plan Assessment/Plan Nephrolithiasis Left hydronephrosis Diabetes mellitus Hypertension Plan Admit the patient to [facility] to the hospitalist Urology consultation Resume home medications Pain management Continue treatment per orders. Plan discussed with: Patient Date of Service: Jan 23, 2025 Billing Provider: NICKY YOO MD Common Visit Codes: [id number] INP/OBS CARE(HIGH) NICKY YOO MD Jan 23, 2025 13:47
[2025-01-23 16:55] VITALS: BP 139/60; PULSE 85; RESP 17; TEMP 98.4; O2SAT 96
--- NOTE | 2025-01-23 18:18 | DVHINCON2 ---
Date of service: Jan 23, 2025 Referring Physician Hospitalist Reason for Consultation 4 mm left UVJ stone with mild hydronephrosis History of Present Illness 64-year-old female presents for evaluation of flank pain. CT scan revealed a 4 mm left distal ureteral calculus with mild hydronephrosis. She is currently pain-free and wants to be discharged Past Medical History Past Medical History Diabetes mellitus, CVA, dyslipidemia, kidney stones, mi, hypertension Past Surgical History Past Surgical History CABG, cholecystectomy Family History: FH: kidney failure G8 FATHER FH: liver cancer G8 BROTHER Malignant neoplasm of breast G8 SISTER Allergies: Coded Allergies: Lisinopril (Verified Allergy, Unknown, 11/04/21) Pregabalin (Verified Allergy, Unknown, 07/01/22) Tramadol (Verified Allergy, Unknown, 11/04/21) Home Meds Reported Medications Ibandronate Sodium (IBANDRONATE SODIUM) 150 Mg Tab, 1 TAB PO 01/23/25 Hydrocodone-Acetaminophen (Hydrocodone/Acetaminophen 5-325 mg) 1 Tab Tab, 1 TAB PO Q6HPRN PRN for PAIN SCALE 7 THRU 10 01/23/25 Coenzyme Q10 (Coq-10) 100 Mg Cap, 200 MG PO DAILY, CAP 01/23/25 Ascorbic Acid (VITAMIN C TABLET) 500 Mg Tb, 1000 MG PO DAILY, TAB 01/23/25 Calcium Carbonate (Calcium) 600 Mg Tab, 600 MG PO BID, TAB 01/23/25 Cholecalciferol (Vitamin D) 1,000 Unit Tab, 1000 UNIT PO DAILY, TAB 01/23/25 Ferrous Gluconate (IRON) 27 Mg Tab, 65 MG PO BID, TAB 01/23/25 Cyanocobalamin (B-12) 1,000 Mcg Cap, 1000 MCG PO DAILY, CAP 01/23/25 Senna (Senna) 8.6 Mg Tab, 1 TAB PO BID 01/23/25 Lidocaine (Lidocan) 5 % Pad, 5 % EX, PAD 10/02/24 Lorazepam (ATIVAN TABLET) 0.5 Mg Tb, 0.5 MG PO, TAB 10/02/24 Zinc Gluconate (ZINC) 100 Mg Tab, 50 MG PO DAILY, TAB 10/02/24 Nifedipine (Nifedipine Er) 30 Mg Tab, 1 TAB PO DAILY 10/01/24 Telmisartan (Telmisartan) 40 Mg Tab, 40 MG PO DAILY for HTN, TAB 11/04/21 Paroxetine (PAXIL TABLET) 20 Mg Tb, 20 MG PO DAILY for DEPRESSION, #30 TAB 5 Refills 11/04/21 Insulin Aspart (Novolog Relion) 100 Unit/Ml Inj, UNIT SC for diabetes, INJ 11/04/21 Metoprolol Succinate (Metoprolol Succinate Er) 50 Mg Tab, 50 MG PO DAILY for 30 Days, MG 09/25/21 Omeprazole (Gnp Omeprazole) 20 Mg Tab, 1 TAB PO DAILY, #90 TAB 1 Refill 09/25/21 Rosuvastatin Calcium (Crestor) 10 Mg Tab, 1 TAB PO DAILY for HYPERLIPIDEMIA, #30 TAB 5 Refills 09/25/21 Metformin HCl (Metformin Hydrochloride) 1,000 Mg Tab, 1000 MG PO BID for DIABETES, TAB 09/25/21 Isosorbide Mononitrate (Isosorbide Mononitrate Er) 30 Mg Tab, 60 MG PO DAILY for CHEST PAIN, MG 09/25/21 Aspirin (Aspir-Low) 81 Mg Tab, 81 MG PO DAILY for CHEST PAIN, MG 09/25/21 Methocarbamol (Methocarbamol) 500 Mg Tab, 500 MG PO TID for MUSCLE SPASM, TAB 09/25/21 Gabapentin (Gabapentin) 100 Mg Cap, 100 MG PO TID for NEUROPATHY 09/25/21 Current Medications Current Medications Medications (Trade) Dose Ordered Sig/Mckayla Route PRN Reason Start Time Stop Time Status Last Admin Nifedipine (Procardia Xl (Time-Release)) 30 mg DAILY PO 01/23/25 10:00 01/23/25 09:45 Atorvastatin Calcium (Lipitor) 10 mg HS PO 01/23/25 22:00 Gabapentin (Neurontin Capsule) 300 mg BID PO 01/23/25 10:00 01/23/25 09:45 Losartan Potassium (Cozaar Tablet) 50 mg DAILY PO 01/23/25 10:00 01/23/25 09:45 Diagnostic Test (Pha) (Accu-Chek Comfort Curve T) 1 strip ACHS 01/23/25 07:00 01/23/25 17:00 Insulin Human Regular (InsuLIN R) ACHS SC 01/23/25 07:00 01/23/25 17:00 Dextrose 50 ml UD PRN IV Blood Sugar LESS THAN 60 01/23/25 04:30 Acetaminophen/ Hydrocodone Bitart ([place] 5/325MG Tab) 1 tab Q4HP PRN PO MODERATE PAIN (4-6 PAIN SCALE) 01/23/25 04:30 Ondansetron HCl (Zofran) 4 mg Q4HP PRN IV NAUSEA / VOMITING 01/23/25 04:30 01/23/25 06:05 Acetaminophen (Tylenol Tablet) 650 mg Q6HP PRN PO PAIN SCALE 1-3 OR TEMP>100.4 01/23/25 04:30 Ketorolac Tromethamine (Toradol Injection) 15 mg Q6HPRN PRN IV SEVERE PAIN (7-10 PAIN SCALE) 01/23/25 04:30 01/28/25 04:29 01/23/25 06:05 Clonidine HCl (Catapres Tablet) 0.1 mg Q6HP PRN PO SBP>160 01/23/25 04:45 Review of Systems Review of Systems Review of systems are currently negative otherwise addressed in HPI. Vital Signs Vital Signs Date Time Temp Pulse Resp B/P (MAP) Pulse Ox O2 Delivery O2 Flow Rate FiO2 01/23/25 16:55 98.4 85 17 139/60 (86) 96 98.4 01/23/25 05:50 Room Air* 0 21 Physical Exam PATIENT: COLLEEN BRITT ACCT: [id number] UNIT: [id number] : 1960 LOC: ER ROOM / BED: / AGE / SEX: 64 / F ADM STATUS: REG ER SERVICE 0251 ORDERING PHYSICIAN: JAMIL HAYDEN MD PROCEDURE(s): ABPL - CT AB PEL WO CON-NO ORAL OR IV REASON: Flank Pain ORDER NUMBER(s): [id number], ACCESSION NUMBER(s): [id number] Exam: CT CT AB PEL WO CON-NO ORAL OR IV History: Flank Pain Comparison Study: CT CT AB PEL WO CON-NO ORAL OR IV on DOS: 10/01/24, CT ABD PELVIS WO CONTRAST on DOS: 01/03/22, [facility] on DOS: 09/18/21 TECHNIQUE: Multidetector CT of the abdomen and pelvis was performed from lung bases to pubic symphysis. Imaging was performed without IV contrast. Axial, coronal and sagittal multiplanar reformats were obtained from the axial data set by the technologist. Radiation optimization: All CT scans at this facility use at least one of these dose optimization techniques: automated exposure control mA and/or kV adjustment per patient size (includes targeted exams where dose is matched to clinical indication) or iterative reconstruction. Radiation Dose Information: CT Dose: CTDI volume is 6.3 mGy. Dose-length product is 304.24 mGy*cm FINDINGS: Evaluation of solid organs is limited due to lack of intravenous contrast use. Imaged portions of the lung bases appear unremarkable. There are coronary artery calcifications. Small hiatal hernia. Liver, spleen, and pancreas appear unremarkable. There has been prior cholecystectomy. Right kidney appears unremarkable. 0.4 cm calculus at the left ureterovesicular junction resulting in hydroureter and mild left hydronephrosis. There is marked perinephric fat stranding and fluid, likely due to calyceal rupture. Additional nonobstructing calculi in the left upper pole measuring 0.4 cm. 2 mm nonobstructing calculi in the right lower pole. There is no evidence of bowel obstruction or focal bowel wall thickening. No significant free fluid, free air, or adenopathy. No suspicious osseous lesion. IMPRESSION: 1. 0.4 cm calculus at the left ureterovesicular junction resulting in mild left hydroureteronephrosis. Findings suggest calyceal rupture. 2. Additional nonobstructing bilateral nephrolithiasis. 3. Small hiatal hernia. 4. Coronary artery calcifications. ATED BY: JOSE LUIS SWENSON MD DICTATED DATE/TIME: 01/23/25336 SIGNED BY: JOSE LUIS SWENSON MD SIGNED DATE/TIME: 01/23/25336 CC: Labs/Diagnostic Data Labs Test 01/23/25 16:48 01/23/25 03:15 01/23/25 03:08 Range/Units POC Glucose 297 H 70-106 mg/dl Urine Color Light-yellow Yellow Urine Clarity Clear Clear Urine pH 5.0 5.0-9.0 Urine Specific [place] 1.027 1.001-1.035 Urine Protein 1+ H Negative Urine Ketones Negative Negative Urine Blood Negative Negative /uL Urine Nitrite Negative Negative Urine Bilirubin Negative Negative Urine Urobilinogen Normal Negative mg/dL Urine Leukocyte Esterase Trace Negative /uL Urine RBC 7 0 - 4 /hpf Urine Microscopic WBC 3 0-5 /HPF Urine Squamous Epithelial Cells Few <5 /hpf Urine Bacteria None seen None Seen /hpf Urine Glucose 3+ H Normal mg/dL White Blood Count 12.4 H 4.4-10.8 10^3/uL Red Blood Count 4.05 4.0-5.20 10^6/uL Hemoglobin 12.1 L 12.2-16.2 g/dL Hematocrit 36.4 36.0-46.0 % Mean Corpuscular Volume 89.9 80.0-100.0 fL Mean Corpuscular Hemoglobin 29.9 28.0-32.0 pg Mean Corpuscular Hemoglobin Concent 33.3 32.0-36.0 g/dL Red Cell Distribution Width 13.5 11.8-14.3 % Platelet Count 303 140-450 10^3/uL Mean Platelet Volume 8.3 6.9-10.8 fL Neutrophils (%) (Auto) 68.0 37.0-80.0 % Lymphocytes (%) (Auto) 22.9 10.0-50.0 % Monocytes (%) (Auto) 6.7 0.0-12.0 % Eosinophils (%) (Auto) 1.9 0.0-7.0 % Basophils (%) (Auto) 0.5 0.0-2.0 % Neutrophils # (Auto) 8.4 1.6-8.6 10 ^3/uL Lymphocytes # (Auto) 2.8 0.4-5.4 10 ^3/uL Monocytes # (Auto) 0.8 0-1.3 10 ^3/uL Eosinophils # (Auto) 0.2 0-0.8 10 ^3/uL Basophils # (Auto) 0.1 0-0.2 10 ^3/uL Nucleated Red Blood Cells 0.0 % Sodium Level 142 136-145 mmol/L Potassium Level 4.8 3.5-5.1 mmol/L Chloride Level 105 98-107 mmol/L Carbon Dioxide Level 27 20-31 mmol/L Anion Gap 10 5-15 Blood Urea Nitrogen 18 9-23 mg/dL Creatinine 0.92 0.550-1.02 mg/dL Glomerular Filtration Rate Calc 70 >90 mL/min BUN/Creatinine Ratio 19.6 10.0-20.0 Serum Glucose 181 H 74-106 mg/dL Calcium Level 9.9 8.7-10.4 mg/dL PATIENT: COLLEEN BRITT ACCT: [id number] UNIT: [id number] : 1960 LOC: OVERFLOW ROOM / BED: [facility]ER / A AGE / SEX: 64 / F ADM STATUS: ADM IN SERVICE 1027 ORDERING PHYSICIAN: JOANNE WELLINGTON PROCEDURE(s): KIDUS - KIDNEY REASON: Possible Calyceal rupture ORDER NUMBER(s): [id number], ACCESSION NUMBER(s): [id number] INDICATION: Possible Calyceal rupture TECHNIQUE: Multiple real-time sonographic images of the kidneys and bladder were obtained. COMPARISON: US KIDNEY on DOS: 10/02/24 FINDINGS: The right kidney measures 10.3 cm in length, which is normal in size. There is normal echogenicity of the right kidney. No hydronephrosis. The left kidney measures 10.8 cm in length, which is normal in size. There is normal echogenicity of the left kidney. No hydronephrosis. Prior to voiding the bladder volume measures 26 cc. Bilateral ureteral jets not visualized. IMPRESSION: No collecting system dilatation. ATED BY: CLAUDIA BERRIOS MD DICTATED DATE/TIME: 01/23/25 1131 SIGNED BY: CLAUDIA BERRIOS MD SIGNED DATE/TIME: 01/23/25 1131 CC: Assessment 4 mm left UVJ stone Mild hydronephrosis Plan/Recommendation Expulsive measures Patient is pain-free and she is stable for discharge. Follow up on outpatient basis Plan discussed with: Patient, Spouse, Other OMER CRUZ MD Jan 23, 2025 18:18
[2025-01-23] MEDS ORDERED: MANNITOL FTV 25% 12.5 GM/50 ML 50 ML IV ONE (19:45)
[2025-01-23 21:00] VITALS: BP 145/52; PULSE 92; RESP 17; TEMP 97.9; O2SAT 95
[2025-01-23] MEDS ORDERED: ATORVASTATIN 20 MG TAB PO SCH (22:00)
== END 2025-01-23 21:40 | disposition left against medical advice (07) | DRG 694 ==
LOC: ER 02:01 → OVERFLOW 04:27 → EAST 17:38
PROVIDERS: ADMIT Hospitalist; ATTEND Hospitalist
DX: N13.2 Hydronephrosis with renal and ureteral calculous obstruction (principal); E11.9 Type 2 diabetes mellitus without complications; E78.5 Hyperlipidemia, unspecified; M32.9 Systemic lupus erythematosus, unspecified; F41.9 Anxiety disorder, unspecified; I10 Essential (primary) hypertension; Z53.29 Procedure and treatment not carried out because of patient's decision for other reasons; M06.9 Rheumatoid arthritis, unspecified; Z95.1 Presence of aortocoronary bypass graft; Z86.73 Personal history of transient ischemic attack (TIA), and cerebral infarction without residual deficits; Z82.0 Family history of epilepsy and other diseases of the nervous system; Z80.3 Family history of malignant neoplasm of breast; Z80.0 Family history of malignant neoplasm of digestive organs; Z88.8 Allergy status to other drugs, medicaments and biological substances; Z90.49 Acquired absence of other specified parts of digestive tract; Z84.19 Family history of other disorders of kidney and ureter; Z87.442 Personal history of urinary calculi; Z79.899 Other long term (current) drug therapy
CPT/HCPCS: 36415; 74176; 76775; 80048; 81001; 82962; 85025; G0378; J1815; J1885; J2405